=== PATIENT | male | born 1960 | race Caucasian/White ===

== ENCOUNTER 2023-02-27 11:41 | Outpatient (AMB) | payer OTHER, SELFPAY ==
--- NOTE | 2023-02-27 12:02 | MHC.OFFVIS ---
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 Tate. He has a past medical history of hearing loss, tobacco use, hypercholesteremia, depression, gout, anxiety, BPH, atherosclerotic heart disease, and alcohol dependence. He presents to the office today as a new patient for an elevated PSA. In discussion with the patient today he reports [facility] at which time a PSA was ordered and noted to be elevated thus his referral here to Urology. He discusses having had a PSA sometime in the beginning of the year and was noted to be mildly elevated between 4-5 at which time redraw of PSA was ordered for 4 months and PSA 12/28 noted to be 10. Discussed at length potential causes for elevated PSA. Patient reports a longstanding history of lower urinary tract symptoms of weak urinary stream in episodes of nocturia. He discusses being started on Flomax 0.4 mg over 1 year ago and felt this was helping his lower urinary tract symptoms. However, has recently started taking 0.8 mg as he feels urinary stream has weakened. He otherwise denies urinary urgency, urinary frequency, incontinence, hematuria, dysuria, foul smelling urine, flank pain, fever, and or chills. Discussed obtaining redraw of PSA with no sex the night before, no caffeine morning of, and no heavy lifting 1-2 days prior to lab draw as well as retroperitoneal ultrasound for further assessment evaluation. ERENDIRA performed;smooth, no masses or nodules palpated. Patient reports longstanding history of constipation. In office urinalysis results reviewed with the patient today. When asked he denies any known family history of prostate cancer. [facility] Medical History Unspecified hearing loss, unspecified ear Tobacco use Pure hypercholesterolemia, unspecified Major depressive disorder, single episode, unspecified Gout Generalized anxiety disorder Benign prostatic hyperplasia without lower urinary tract symptoms Atherosclerotic heart disease of [place] coronary artery without angina pectoris Alcohol dependence Review of Systems Const Reports as per HPI Eyes Reports no additional complaints ENT Reports as per HPI Card Reports as per HPI Resp Reports no additional complaints GI Reports as per HPI Reports as per HPI Musc Reports no additional complaints Neuro Reports no additional complaints Psych Reports as per HPI Endo Reports no additional complaints Physical Exam Const General: cooperative, comfortable, no acute distress, well developed, alert, awake and poor hygiene Orientation/consciousness: patient oriented x3 Limitations: no limitations HEENT Head: Yes normal to inspection, Yes normocephalic and Yes atraumatic Ears: hearing grossly normal bilaterally Eyes General: appearance normal, both eyes and all related structures Neck Neck: Yes normal visual inspection and Yes trachea midline Chest Chest palpation & inspection: normal inspection of the chest Resp Effort & Inspection: normal respiratory effort and able to speak in complete sentences Cardio Rate: regular rate GI Inspection: Yes normal to inspection General: Yes no CVA tenderness Back/Spine/Pelvis Back: no CVA tenderness Skin General skin exam: no rashes or lesions noted Neuro General: patient oriented x3 Extrem General: Yes normal to inspection Psych Appearance: grossly normal and well kempt Mental Status: mental status grossly normal Speech and movement: Normal speech and movement present and Clear speech present Affect: normal affect Attitude: cooperative Thought process: Normal thought process present Thought content: Normal thought content present Insight: Fair insight present (Psych) Judgement: Fair judgement present (Psych) Results AMB Urinalysis, Automated UA Leukoctes 15 Janna/uL Last Edit by Lakeshia Hoang on 02/27/23 12:19 UA Nitrite Negative Last Edit by Pretty in my Pocket (PRIMP) Viktor on 02/27/23 12:19 UA Urobilinogen 0.2 mg/dL Last Edit by Gliderpresley Hoang on 02/27/23 12:19 UA Protein 100 mg/dL Last Edit by [email or web address] Minutespresley Hoang on 02/27/23 12:19 UA pH 6.0 Last Edit by [email or web address] Minutespresley Hoang on 02/27/23 12:19 UA Blood 0 Juan/uL Last Edit by [email or web address] Minutespresley Hoang on 02/27/23 12:19 UA Specific [place] 1.025 Last Edit by Lakeshia Hoang on 02/27/23 12:19 UA Ketone Positive Last Edit by Lakeshia Gleasonnilton on 02/27/23 12:19 UA Bilirubin 1 mg/dL Last Edit by Lakeshia Gleasonnilton on 02/27/23 12:19 UA Glucose 0 mg/dL Last Edit by Lakeshia Gleasonnilton on 02/27/23 12:19 Results Reviewed Results Reviewed: Laboratory Last Values Urine pH (Auto) 6.0 02/27/23 12:04 Specific [place] (Auto) 1.025 02/27/23 12:04 Urine Protein (Auto) 100 mg/dL 02/27/23 12:04 Glucose (UA)(Auto) 0 mg/dL 02/27/23 12:04 Urine Ketones (Auto) Positive 02/27/23 12:04 Urine Blood (Auto) 0 Juan/uL 02/27/23 12:04 Urine Nitrite (Auto) Negative 02/27/23 12:04 Urine Bilirubin (Auto) 1 mg/dL 02/27/23 12:04 Urine Urobilinogen (Auto) 0.2 mg/dL 02/27/23 12:04 Leukocyte Esterase (Auto) 15 Janna/uL 02/27/23 12:04 Assessment & Plan Assessment & Plan (1) Elevated PSA: Code(s): R97.20 - Elevated prostate specific antigen [PSA] (2) Weak urinary stream: Code(s): R39.12 - Poor urinary stream (3) Lower urinary tract symptoms: Code(s): R39.9 - Unspecified symptoms and signs involving the genitourinary system Plan In office urinalysis results reviewed with the patient today. Continue Flomax as discussed. Will obtain PSA with specific instructions as noted above. Will obtain retroperitoneal ultrasound for further assessment evaluation. Discussed at length potential causes for elevated PSA. Follow-up in 1 month with lab and imaging to be completed prior; or sooner with any issues, concerns, and or questions. Orders: Orders AMB Urinalysis Automated Today Z13.9 - Encounter for screening, unspecified US retroperitoneal comp Today R97.20 - Elevated prostate specific antigen [PSA] PSA,Total (Free>4and<10) Today R97.20 - Elevated prostate specific antigen [PSA] Patient Instructions: The patient had an opportunity to ask questions regarding the treatment plan. All questions were answered. Physical exam, labs, and imaging were discussed and reviewed in detail. As well as risks, benefits, and discussion of treatment choices. No major barriers to understanding were identified. The patient expressed understanding and agreement with the above treatment plan. The patient was made aware they should contact our office by phone for worsening of their current condition, the appearance of new symptoms, or with any questions or concerns. Compliance is encouraged with any medications and follow up testing that is ordered. It is a privilege to be allowed the opportunity to participate in? your urological care.? Again, if you have any questions or concerns If you have any questions or concerns please do not hesitate to contact me. The office is [phone]. This note is constructed using voice recognition software. While every effort has been made to ensure accuracy water rights specialist errors may have been included. Yours sincerely, ORALIA Shelton Coding Level of Care Code New Pt Level 3 (10698) Diagnoses Elevated PSA R97.20 Weak urinary stream R39.12 Lower urinary tract symptoms R39.9
== END 2023-02-27 12:40 | disposition home or self-care (01) ==
PROVIDERS: PCP Internal Medicine; Visit Provider Nurse Practitioner Family
DX: R97.20 Elevated prostate specific antigen [PSA] (principal); R39.12 Poor urinary stream; R39.9 Unspecified symptoms and signs involving the genitourinary system
CPT/HCPCS: 99203

== ENCOUNTER → 2023-02-27 11:41 | Outpatient (BNVA) | payer OTHER, SELFPAY | PROVIDERS: PCP Internal Medicine; Visit Provider Nurse Practitioner Family | DX: R39.9 Unspecified symptoms and signs involving the genitourinary system (principal); R39.15 Urgency of urination; R97.20 Elevated prostate specific antigen [PSA] | CPT/HCPCS: 81003 ==

== ENCOUNTER 2023-03-07 12:49 | Outpatient (REF) | payer BC, SELFPAY ==
[2023-03-07 17:08] LABS: PSA,Total (Free>4and<10) 6.95 ng/mL (0.00-4.00)
[2023-03-09 10:39] LABS: Free Prostate Spec Ag 0.6 ng/mL; Percent Free Prostate Spec Ag 9 % (calc) (>25); Prostate Specific Ag Total 6.6 ng/mL (< OR = 4.0)
== END 2023-03-07 12:50 | disposition home or self-care (01) ==
LOC: HO.HMGCLDS 12:49
PROVIDERS: Visit Provider Nurse Practitioner Family
DX: Z12.5 Encounter for screening for malignant neoplasm of prostate (principal); R97.20 Elevated prostate specific antigen [PSA]
CPT/HCPCS: 36415; 84153; 84154

== ENCOUNTER 2023-03-17 12:50 | Outpatient (REF) | payer BC, OTHER, SELFPAY | END 2023-03-17 12:51 | disposition home or self-care (01) | LOC: HO.HMGCX 12:50 | PROVIDERS: PCP Internal Medicine; Visit Provider Nurse Practitioner Family | DX: Z13.89 Encounter for screening for other disorder (principal) ==

== ENCOUNTER 2023-03-23 10:27 | Outpatient (REF) | payer BC, SELFPAY ==
--- NOTE | ~2023-03-23 | US_ITS ---
EXAMINATION: US RETROPERITONEAL COMPLETE (RENAL) CLINICAL INFORMATION: Elevated prostate specific antigen. COMPARISON: None available. TECHNIQUE: Real-time imaging of the kidneys and bladder. FINDINGS: RIGHT KIDNEY: 10.9 x 5.7 x 5.9 cm (SAG x AP x TRV). The kidney is normal in size, contour, and echogenicity. Renal cortical thickness is normal. No calculi or focal parenchymal lesions. No hydronephrosis. LEFT KIDNEY: 10.9 x 5.1 x 5.8 cm (SAG x AP x TRV). The kidney is normal in size, contour, and echogenicity. Renal cortical thickness is normal. Question midpole cortical scarring. No calculi or focal parenchymal lesions. No hydronephrosis. BLADDER: Well distended and normal. Bilateral ureteral jets are not demonstrated. Prevoid bladder volume is 570 mL. Postvoid bladder volume is 0 mL. Enlarged prostate, volume 51.6 mL. US/US retroperitoneal comp IMPRESSION: Nonhydronephrotic kidneys. Unremarkable appearing distended urinary bladder with no postvoid residual. Enlarged prostate.
== END 2023-03-23 10:28 | disposition home or self-care (01) ==
LOC: HO.HMGCX 10:27
PROVIDERS: PCP Internal Medicine; Visit Provider Nurse Practitioner Family
DX: R97.20 Elevated prostate specific antigen [PSA] (principal)
CPT/HCPCS: 76770

== ENCOUNTER 2023-04-10 14:00 | Outpatient (RCR) | payer OTHER, BC, SELFPAY | END 2023-06-02 11:20 | disposition home or self-care (01) | LOC: HO.PTCHIC 14:00 | PROVIDERS: PCP Emergency Medicine; Visit Provider Orthopaedic Surgery | DX: M75.41 Impingement syndrome of right shoulder (principal); M75.42 Impingement syndrome of left shoulder; M75.21 Bicipital tendinitis, right shoulder; M75.22 Bicipital tendinitis, left shoulder | CPT/HCPCS: 97110; 97162 ==

== ENCOUNTER 2023-04-18 09:55 | Outpatient (AMB) | payer OTHER, SELFPAY ==
--- NOTE | 2023-04-18 10:07 | MHC.OFFVIS ---
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 Tate. He has a past medical history of hearing loss, tobacco use, hypercholesteremia, depression, gout, anxiety, BPH, atherosclerotic heart disease, and alcohol dependence. He presents to the office today for follow-up. Of note, patient was seen approximately 6 weeks ago as a new patient for an elevated PSA at which time redraw of PSA was ordered and a retroperitoneal ultrasound for further assessment evaluation. These results reviewed with the patient today. Bilateral kidneys with no calculi, lesions, and or hydronephrosis noted. The bladder is well distended and normal. Bilateral ureteral jets are not demonstrated. Prevoid bladder volume is approximately 570 mL. Postvoid bladder volume is 0. Enlarged prostate with a volume of approximately 52 mL. PSAs are as follows: 12/28--10.0 02/27--7.0 % free free PSA 9% Discussed PCPT risk calculator with 31% chance that biopsy is negative for cancer, 47% chance of low-grade prostate cancer, and 22% chance of high-grade prostate cancer. Discussed at length potential causes of elevated PSA. Discussed at length potential treatment options with prostate biopsy verses finasteride verses MRI of the prostate for further assessment evaluation. Discussed risks and benefits of these interventions at length with the patient today. ERENDIRA performed at last office visit; smooth, no masses or nodules palpated. He does report longstanding history of lower urinary tract symptoms with nocturia and weak urinary stream. He reports feeling Flomax 0.8 mg daily has been helpful for his lower urinary tract symptoms. He otherwise denies urinary urgency, urinary frequency, incontinence, hematuria, dysuria, foul smelling urine, flank pain, fever, and or chills. Patient reports longstanding history of constipation. In office urinalysis results reviewed with the patient today. When asked he denies any known family history of prostate cancer. [facility] Medical History Unspecified hearing loss, unspecified ear Tobacco use Pure hypercholesterolemia, unspecified Major depressive disorder, single episode, unspecified Gout Generalized anxiety disorder Benign prostatic hyperplasia without lower urinary tract symptoms Atherosclerotic heart disease of [place] coronary artery without angina pectoris Alcohol dependence Review of Systems Const Reports as per HPI Eyes Reports no additional complaints ENT Reports as per HPI Card Reports as per HPI Resp Reports no additional complaints GI Reports as per HPI Reports as per HPI Musc Reports no additional complaints Neuro Reports no additional complaints Psych Reports as per HPI Endo Reports no additional complaints Physical Exam Const General: cooperative, comfortable, no acute distress, well developed, alert, awake and poor hygiene Orientation/consciousness: patient oriented x3 Limitations: no limitations HEENT Head: Yes normal to inspection, Yes normocephalic and Yes atraumatic Ears: hearing grossly normal bilaterally Eyes General: appearance normal, both eyes and all related structures Neck Neck: Yes normal visual inspection and Yes trachea midline Chest Chest palpation & inspection: normal inspection of the chest Resp Effort & Inspection: normal respiratory effort and able to speak in complete sentences Cardio Rate: regular rate GI Inspection: Yes normal to inspection General: Yes no CVA tenderness Back/Spine/Pelvis Back: no CVA tenderness Skin General skin exam: no rashes or lesions noted Neuro General: patient oriented x3 Extrem General: Yes normal to inspection Psych Appearance: grossly normal and well kempt Mental Status: mental status grossly normal Speech and movement: Normal speech and movement present and Clear speech present Affect: normal affect Attitude: cooperative Thought process: Normal thought process present Thought content: Normal thought content present Insight: Fair insight present (Psych) Judgement: Fair judgement present (Psych) Results AMB Urinalysis, Automated UA Leukoctes 0 Janna/uL Last Edit by [email or web address] on 04/18/23 10:21 UA Nitrite Negative Last Edit by [email or web address] on 04/18/23 10:21 UA Urobilinogen 0.2 mg/dL Last Edit by Lakeshia Hoang on 04/18/23 10:21 UA Protein 30 mg/dL Last Edit by Lakeshia Hoang on 04/18/23 10:21 UA pH 6.0 Last Edit by Lakeshia Hoang on 04/18/23 10:21 UA Blood 0 Juan/uL Last Edit by Lakeshia Hoang on 04/18/23 10:21 UA Specific [place] 1.005 Last Edit by Lakeshia Hoang on 04/18/23 10:21 UA Ketone Negative Last Edit by Lakeshia Hoang on 04/18/23 10:21 UA Bilirubin 0 mg/dL Last Edit by Lakeshia Hoang on 04/18/23 10:21 UA Glucose 0 mg/dL Last Edit by Lakeshia Hoang on 04/18/23 10:21 Results Reviewed Results Reviewed: Laboratory Last Values Urine pH (Auto) 6.0 04/18/23 10:15 Specific [place] (Auto) 1.005 04/18/23 10:15 Urine Protein (Auto) 30 mg/dL 04/18/23 10:15 Glucose (UA)(Auto) 0 mg/dL 04/18/23 10:15 Urine Ketones (Auto) Negative 04/18/23 10:15 Urine Blood (Auto) 0 Juan/uL 04/18/23 10:15 Urine Nitrite (Auto) Negative 04/18/23 10:15 Urine Bilirubin (Auto) 0 mg/dL 04/18/23 10:15 Urine Urobilinogen (Auto) 0.2 mg/dL 04/18/23 10:15 Leukocyte Esterase (Auto) 0 Janna/uL 04/18/23 10:15 Date of Service: 03/23/23 EXAMINATION: US RETROPERITONEAL COMPLETE (RENAL) FINDINGS: RIGHT KIDNEY: 10.9 x 5.7 x 5.9 cm (SAG x AP x TRV). The kidney is normal in size, contour, and echogenicity. Renal cortical thickness is normal. No calculi or focal parenchymal lesions. No hydronephrosis. LEFT KIDNEY: 10.9 x 5.1 x 5.8 cm (SAG x AP x TRV). The kidney is normal in size, contour, and echogenicity. Renal cortical thickness is normal. Question midpole cortical scarring. No calculi or focal parenchymal lesions. No hydronephrosis. BLADDER: Well distended and normal. Bilateral ureteral jets are not demonstrated. Prevoid bladder volume is 570 mL. Postvoid bladder volume is 0 mL. Enlarged prostate, volume 51.6 mL. IMPRESSION: Nonhydronephrotic kidneys. Unremarkable appearing distended urinary bladder with no postvoid residual. Enlarged prostate. Assessment & Plan Assessment & Plan (1) Lower urinary tract symptoms: Code(s): R39.9 - Unspecified symptoms and signs involving the genitourinary system (2) Weak urinary stream: Code(s): R39.12 - Poor urinary stream (3) Elevated PSA: Code(s): R97.20 - Elevated prostate specific antigen [PSA] (4) Enlarged prostate: Code(s): N40.0 - Benign prostatic hyperplasia without lower urinary tract symptoms Plan: Plan Risks and benefits regarding trans rectal ultrasound with prostate biopsy were discussed.? Options of continued surveillance, no treatment and biopsy were offered. The risks include but are not limited to, urinary tract infection, sepsis, difficulty urinating, bleeding into the rectum or bladder that requires intervention and transfusion,and failure to diagnose prostate cancer. The patient understands the options and the risks involved. They wish to proceed. Printed information was provided to ensure he remains off anticoagulation for the appropriate length of time. He may require cardiology or PCP clearance.? An antibiotic will be administered prior to, and following the procedure Plan In office urinalysis results reviewed with the patient today; as noted above. Recent retroperitoneal ultrasound results reviewed with the patient today; as noted above. Recent PSA results reviewed with the patient today; as noted above. Discussed at length potential causes of elevated PSA. Discussed further treatment options with prostate biopsy versus trial of finasteride verses prostate MRI; risks and benefits of these interventions were discussed at length; all questions were answered Patient reports be happy with current voiding parameters on 0.8 mg of Flomax daily; will continue Will schedule for prostate biopsy as discussed Prescription provided for antibiotic; discussed taking antibiotics day before, day of, and day after prostate biopsy Follow-up status post Dr. Canas's order; or sooner with any issues, concerns, and or questions. Orders: Orders AMB Urinalysis Automated Today Z13.9 - Encounter for screening, unspecified Medications: New levofloxacin take 1 tablet day before procedure, 1 tablet day of procedure and 1 tablet day after procedure 500 mg PO daily 3 tabs 0RF 3 days Patient Instructions: The patient had an opportunity to ask questions regarding the treatment plan. All questions were answered. Physical exam, labs, and imaging were discussed and reviewed in detail. As well as risks, benefits, and discussion of treatment choices. No major barriers to understanding were identified. The patient expressed understanding and agreement with the above treatment plan. The patient was made aware they should contact our office by phone for worsening of their current condition, the appearance of new symptoms, or with any questions or concerns. Compliance is encouraged with any medications and follow up testing that is ordered. It is a privilege to be allowed the opportunity to participate in? your urological care.? Again, if you have any questions or concerns If you have any questions or concerns please do not hesitate to contact me. The office is [phone]. This note is constructed using voice recognition software. While every effort has been made to ensure accuracy catalyst operator gasoline errors may have been included. Yours sincerely, ORALIA Shelton Coding Level of Care Code Est Pt Level 4 (04266) Diagnoses Lower urinary tract symptoms R39.9 Weak urinary stream R39.12 Elevated PSA R97.20 Enlarged prostate N40.0
== END 2023-04-18 10:51 | disposition home or self-care (01) ==
PROVIDERS: PCP Internal Medicine; Visit Provider Nurse Practitioner Family
DX: R39.9 Unspecified symptoms and signs involving the genitourinary system (principal); R39.12 Poor urinary stream; R97.20 Elevated prostate specific antigen [PSA]; N40.0 Benign prostatic hyperplasia without lower urinary tract symptoms; Z13.9 Encounter for screening, unspecified
CPT/HCPCS: 99214

== ENCOUNTER → 2023-04-18 09:55 | Outpatient (BNVA) | payer OTHER, SELFPAY | PROVIDERS: PCP Internal Medicine; Visit Provider Nurse Practitioner Family | DX: R39.9 Unspecified symptoms and signs involving the genitourinary system (principal); R39.12 Poor urinary stream; R97.20 Elevated prostate specific antigen [PSA]; N40.0 Benign prostatic hyperplasia without lower urinary tract symptoms | CPT/HCPCS: 81003; 99212 ==

== ENCOUNTER 2023-05-16 08:06 | Outpatient (REF) | payer OTHER, SELFPAY ==
[2023-05-16 08:03] VITALS: BP 146/96; PULSE 76; RESP 16; TEMP 36.1; O2SAT 97
[2023-05-16 08:05] VITALS: BMI 29.2
[2023-05-16 09:17] VITALS: BP 149/85; PULSE 75; RESP 16; O2SAT 97
--- NOTE | 2023-05-16 09:19 | W.PM.OPN ---
Operative Note Operative Note Date of Service: 05/16/23 Narrative: Preoperative diagnosis: Elevated PSA Postoperative diagnosis: Elevated PSA Procedure: 1. transrectal ultrasound measurement of prostate 2. transrectal ultrasound-guided pudendal nerve block 3. transrectal ultrasound-guided prostate biopsy 12 core Surgeon: Dr. Eliseo Canas Anesthetic: Local Indications for procedure: Elevated PSA 6.6 9% Procedure: After informed consent was verified, the patient was brought into the procedure area and lay left-hand side down on the table. Patient identity confirmed. Perioperative antibiotics confirmed. Safety pause time out performed. ERENDIRA performed to dilate rectal sphincter Iodine 10cc with Gel was placed per rectum Ultrasound probe was placed per rectum The prostate was measured in 3 dimensions Total volume equals 45 gm No cystic structures were noted Calcifications were noted at the surgical margin The prostate was otherwise heterogenous in nature - clear PZ demarcation An ultrasound-guided pudendal nerve block was performed using 10 cc of 1% lidocaine. 8 cc was placed at the base and 2 cc of the apex. A 12 core biopsy was performed with 6 cores each side. Two cores were taken at the apex, mid and base. Cores were spaced between lateral and medial. He tolerated the procedure well. Was able to ambulate to bathroom after 5 minutes. Printed instructions regarding antibiotic use and common side effects such as low-grade temperature, potential infection and bleeding were given Pathology: 12 core prostate biopsy.
== END 2023-05-16 08:07 | disposition home or self-care (01) ==
LOC: HO.MS 08:06
PROVIDERS: PCP Internal Medicine; Visit Provider Urology
PROC: (CPT 55700; principal; 2023-05-16 08:00)
DX: C61 Malignant neoplasm of prostate (principal); R97.20 Elevated prostate specific antigen [PSA]
CPT/HCPCS: 55700; 76942; 88305

== ENCOUNTER → 2023-05-16 08:06 | Outpatient (BNV) | payer OTHER, SELFPAY | PROVIDERS: PCP Internal Medicine; Visit Provider Urology | DX: R97.20 Elevated prostate specific antigen [PSA] (principal) | CPT/HCPCS: 55700; 76942 ==

== ENCOUNTER 2023-06-07 15:32 | Outpatient (AMB) | payer OTHER, SELFPAY ==
--- NOTE | 2023-06-07 15:47 | A.OFFVIS_ITS ---
Intake Intake Visit Reasons: Prostate biopsy results Intake Note: Patient Is Present for Post Op Follow up Procedure Done: Prostate Biopsy Urology Med: Tamsulosin Antibiotic Allergy: None Blood Thinner: Aspirin Allergies No Known Allergies [No Known Allergies*] Allergy (Unverified 04/18/23 10:23) Medication List - Last Reconciled 06/07/23 by Eliseo Canas MD allopurinol mg PO aspirin 81 mg PO DAILY atorvastatin 80 mg PO DAILY levofloxacin 500 mg PO daily 3 days naproxen 500 mg PO BID tamsulosin 0.4 mg PO DAILY venlafaxine ER 300 mg PO DAILY HPI HPI Comments History of Present Illness Details Shay is a pleasant male. He has a patient of Dr. Tate. He is seen for the following urologic conditions - prostate cancer - nephrolithiasis Discussion regarding recent diagnosis of prostate cancer Recommend staging with MRI and PSMA scan Prostate cancer - grade group 4, low volume, low PSA - 05/31 PSA diagnosis 7.0 free PSA 9% TRUS Volume 45 g ERENDIRA normal No family history of prostate cancer No family history of other hormonal [place] Histologic type: Adenocarcinoma, acinar type Karla score: 9 (5+4) (left base lateral) 45%, 9 (4+5) (left base medial 6%, left mid medial 10%) Number cores positive: 3 Total number of cores: 12 % of tissue involved: 4 % Periprostatic fat inv.: Not identified, Seminal vesicle inv.: Not identified, Perineural inv.: Not identified, Lymphovascular invasion: Not identified Plan for imaging with MRI and PSMA PET CT [facility] Medical History Unspecified hearing loss, unspecified ear Tobacco use Pure hypercholesterolemia, unspecified Major depressive disorder, single episode, unspecified Gout Generalized anxiety disorder Benign prostatic hyperplasia without lower urinary tract symptoms Atherosclerotic heart disease of [place] coronary artery without angina pectoris Alcohol dependence Review of Systems Const Denies chills and Denies fever(s) Card Reports no additional complaints and Denies syncope Resp Denies cough GI Denies abdominal pain and Denies heartburn Reports as per HPI and Denies change in libido Neuro Denies syncope Psych Denies change in libido Endo Denies change in libido Physical Exam Const General: cooperative, healthy appearing, comfortable and no acute distress Orientation/consciousness: patient oriented x3 HEENT Face and sinus: Yes normal facial exam Mouth: moist mucous membranes Neck Neck: Yes normal visual inspection, Yes full ROM and Yes trachea midline Chest Chest palpation & inspection: normal inspection of the chest Resp Effort & Inspection: normal respiratory effort, able to speak in complete sentences and no respiratory distress GI Inspection: Yes normal to inspection Back/Spine/Pelvis Cervical Spine: normal cervical lordosis Thoracic/Lumbar Spine: thoracic and lumbar spine normal to inspection Skin General skin exam: no rashes or lesions noted Neuro General: patient oriented x3, gait normal, tone normal and moves all extremities Extrem General: Yes normal to inspection and Yes capillary refill normal Assessment & Plan Assessment & Plan (1) Prostate cancer: Code(s): C61 - Malignant neoplasm of prostate Plan One month follow-up MRI and PET imaging Orders: Orders Creatinine 4 Weeks C61 - Malignant neoplasm of prostate, R39.15 - Urgency of urination Blood Urea Nitrogen 4 Weeks C61 - Malignant neoplasm of prostate, R39.15 - Urgency of urination PET CT fusion skull to thigh 06/07/23 C61 - Malignant neoplasm of prostate MR pelvis wo/w con 4 Weeks C61 - Malignant neoplasm of prostate Patient Instructions: Imaging studies, laboratory and physical exam results were discussed and reviewed in detail. No major barriers to patient understanding were identified. An opportunity to ask questions regarding the treatment plan was provided. All questions were answered. The patient expressed understanding and agreement with the above treatment plan. The patient is aware they should contact our office by phone for worsening of their current condition or the appearance of new urologic symptoms. Compliance is encouraged with any medications and followup testing that is ordered. It is a privilege to participate in the urologic care of your patient. If you have any questions or concerns regarding treatment for the above conditions, or other urologic issues, please do not hesitate to contact me. The office telephone contact is [phone]. This note is constructed using voice recognition software. While every effort has been made to ensure accuracy cloth checker errors may have been included. Yours sincerely, Dr Eliseo Canas MD, DANIELA [facility] - Urology Providers of Expert, Compassionate Care for the Genitourinary System Coding Level of Care Code Est Pt Level 4 (84105) Diagnoses Prostate cancer C61
== END 2023-06-07 16:20 | disposition home or self-care (01) ==
PROVIDERS: PCP Internal Medicine; Visit Provider Urology
DX: C61 Malignant neoplasm of prostate (principal)
CPT/HCPCS: 99214

== ENCOUNTER → 2023-06-07 15:32 | Outpatient (BNVA) | payer OTHER, SELFPAY | PROVIDERS: PCP Internal Medicine; Visit Provider Urology | DX: C61 Malignant neoplasm of prostate (principal); Z98.890 Other specified postprocedural states | CPT/HCPCS: 99212 ==

== ENCOUNTER 2023-07-26 15:04 | Outpatient (AMB) | payer OTHER, SELFPAY ==
--- NOTE | 2023-07-26 15:47 | A.OFFVIS_ITS ---
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 He has a patient of Dr. Tate. He is seen for the following urologic conditions - prostate cancer - nephrolithiasis PSA may stent has been performed No evidence of genesis disease MRI has not been completed MRI reordered He is more interested in surgery Referral to Dr. Aviles at [facility] for robotic surgery assessment. Discussed basics for robotic prostatectomy including incontinence recovery, erection issues, expected hospital stay. Given grade 4 disease will need germline genetic testing at some point. Prostate cancer - grade group 4, low volume, low PSA - 05/31 PSA diagnosis 7.0 free PSA 9% TRUS Volume 45 g ERENDIRA normal No family history of prostate cancer No family history of other hormonal [place] Histologic type: Adenocarcinoma, acinar type [place] score: 9 (5+4) (left base lateral) 45%, 9 (4+5) (left base medial 6%, left mid medial 10%) Number cores positive: 3 Total number of cores: 12 % of tissue involved: 4 % Periprostatic fat inv.: Not identified, Seminal vesicle inv.: Not identified, Perineural inv.: Not identified, Lymphovascular invasion: Not identified Plan - referral Dr. Aviles [facility] prostatectomy [facility] Medical History (Reviewed 07/26/23 @ 16:00 by GLEN [place] Unspecified hearing loss, unspecified ear Tobacco use Pure hypercholesterolemia, unspecified Major depressive disorder, single episode, unspecified Gout Generalized anxiety disorder Benign prostatic hyperplasia without lower urinary tract symptoms Atherosclerotic heart disease of [place] coronary artery without angina pectoris Alcohol dependence Review of Systems Const Denies chills and Denies fever(s) Card Reports no additional complaints and Denies syncope Resp Denies cough GI Denies abdominal pain and Denies heartburn Reports as per HPI and Denies change in libido Neuro Denies syncope Psych Denies change in libido Endo Denies change in libido Physical Exam Const General: cooperative, healthy appearing, comfortable and no acute distress Orientation/consciousness: patient oriented x3 HEENT Face and sinus: Yes normal facial exam Mouth: moist mucous membranes Neck Neck: Yes normal visual inspection, Yes full ROM and Yes trachea midline Chest Chest palpation & inspection: normal inspection of the chest Resp Effort & Inspection: normal respiratory effort, able to speak in complete sentences and no respiratory distress GI Inspection: Yes normal to inspection Back/Spine/Pelvis Cervical Spine: normal cervical lordosis Thoracic/Lumbar Spine: thoracic and lumbar spine normal to inspection Skin General skin exam: no rashes or lesions noted Neuro General: patient oriented x3, gait normal, tone normal and moves all extremities Extrem General: Yes normal to inspection and Yes capillary refill normal Office Procedures Post Void Residual Post Residual Void Post Void Residual (PVR): 11 [id number] Void Residual by ultrasound Assessment & Plan Assessment & Plan (1) Prostate cancer: Code(s): C61 - Malignant neoplasm of prostate Plan Prostate Cancer Therapy Discussion today focused on treatment options for prostate cancer. The patient has already reviewed educational materials that had been provided to him in printed form. The NCCN criteria for imaging, molecular testing and germ line testing were discussed. Prognostic Model Information calculated using STAR-CAPS [email or web address] Stage Prediction IIC 5yr Specific Mortality 2.5% 10yr Specfic Mortality 9.5% The discussion was then focused on therapeutic options which include 1) Deferred therapy/active surveillance. Recommended in the setting of low volume, very low risk and low risk disease. Criteria include 3 cores all less, same side, no core greater than 50% disease. Evaluation may be augmented with imaging such as pelvic MRI and genetic evaluation of biopsy material. Somatic tissue genetic testing such as Prolaris, which focuses on tumor-specific pathogenic variants that may identify an indication for further germline testing and can guide therapeutic decisions in the setting of low risk and low volume disease. - The patient is not a candidate for active surveillance. 2) Targeted Cryotherapy Ablation. The technique of cryotherapy was described. PSA free progression rates were discussed. Suitable candidates in general have low volume grade group 1 or grade group 2 disease. Typically pelvic MRI with targeted mapping biopsies are required for treatment planning. - The patient is not a candidate for image guided targeted cryotherapy ablation. 3) Robotic Prostatectomy. Salient features of the patient's PSA, Karla score and disease stage were applied to the [facility] nomogram. Relevant rates of extracapsular extension, seminal vesicle involvement genesis involvement with discussed. Pathologic up staging and down staging on final specimen was discussed. Salient features of the procedure, hospitalization and recovery were discussed. - The patient is a candidate for robotic prostatectomy. 4) Radiation therapy was described. IMRT, hyperfractionated therapy, permanent seed implant with all without concomitant androgen deprivation therapy and rectal protection were discussed. There is a small separation regarding cancer control between radiation and prostatectomy at approximately 15 years. There is an evolving preference for hyper fractionated therapy. This gives the same radiation total dose in a reduced number of individual treatment sessions. This approach is associated with higher risks of rectal bleeding. To ameliorate these risks injection of a spacer gel posterior to the prostate has been advocated. This is only indicated in patients without evidence of extracapsular extension posteriorly, and should be considered with caution where disease is primary grade 4. Brachytherapy was described in detail. Typically this is a same day procedure. Therapy is typically well tolerated and gives good control for low-risk prostate cancer and cancer that does not involve neurovascular invasion. - The patient is a candidate for EXBRT with 18 months hormone therapy Different risks were described for each therapeutic option. Ranges from the published literature were discussed. Consequent morbidity and treatment to address complications were discussed. These include - robotic prostatectomy - Typically patients are in hospital for one day and miss 4 weeks of work. The importance of preoperative walking and Kegel exercises was stressed. Complications, including but not limited to; acute complications regarding blood loss, transfusion, DVT, ileus, wound infection and potential mortality. Long-term complications such as impotence, UTI, urethral stricture, bladder neck contracture, incontinence. Penile shrinkage and chronic pain were discussed and reviewed. - radiation - IMRT typically this takes 25-40 daily treatments administered on a Monday through Monday sequence. Treatment is normally well tolerated. associated side effects include urge, frequency, dysuria, hematuria, loose bowels and fatigue, particularly toward the end of therapy. These can be ameliorated to some degree with medication. Long-term risks regarding impotence and a small risk of chronic urinary urge and incontinence were discussed - brachytherapy General anesthesia is used. Radioactive seeds are placed. There may be a required planning visit. Risks regarding anesthesia with DVT, PE, infection, urinary retention, urgency, and frequency were discussed. Long-term risks include bladder neck contraction, impotence, urge, potential for secondary cancer of the bladder base The patient has Grade Group 4 - pT1c prostate cancer disease Based on the patient's age, comorbidities and personal preferences reasonable treatment options include robotic prostatectomy and external beam radiation The patient is a candidate for germline testing in accordance with the NCCN guideline Germline testing Germline testing is used to identify inherited pathogenic variants in DNA, which can guide screening, familial testing, and treatment decision-making. The National Comprehensive Cancer Network (NCCN) has recommended the use of germline genetic testing for patients with prostate cancer since 2018.?Germline testing should be considered for patients with clinically low-to intermediate-localized disease with a family history of prostate cancer; or high-to very high-risk localized disease. For regional or distant metastatic disease, germline testing is recommended regardless of initial risk. Please see the following excerpt. NCCN Version 4.2023 PROS-C 2 of 3 Germline testing is recommended in patients with a personal history of prostate cancer in the following scenarios: ? By prostate cancer stage or risk group (diagnosed at any age) - Metastatic, regional (node positive), [id number] localized, or high- risk localized prostate cancer ? By family history and/or ancestry - >= 1 - first-, second-, or third-degree relative with: - breast cancer at age <50 - colorectal or endometrial cancer at age <50 - male (sex assigned at ) breast cancer at any age - ovarian cancer at any age - exocrine pancreatic cancer at any age - metastatic, regional, [id number], or high-risk prostate cancer at any age - >= 1- first-degree relative (parent or sibling) with: - prostate cancer at age <60 - >= 2- first-, second-, or third-degree relatives with: - breast cancer at any age - prostate cancer at any age - >= 3 - first- or second-degree relatives with: - Darby syndrome-related cancers, especially if diagnosed <50 y: colorectal, endometrial, gastric, ovarian, exocrine pancreas, upper tract urothelial, glioblastoma, biliary tract, and small intestinal cancer - A known family history of familial cancer risk mutation (pathogenic/likely pathogenic variants), especially in: BRCA1, BRCA2, SALVADRO, PALB2, CHEK2, MLH1, MSH2, MSH6, PMS2, and EPCAM - Ashkenazi Quaker ancestry ? Personal history of breast cancer Germline testing may be considered in patients with a personal history of prostate cancer in the following scenarios: ? By prostate cancer tumor characteristics (diagnosed at any age) - intermediate-risk prostate cancer with intraductal/cribriform histologyc ? By prostate cancer AND a prior personal history of any of the following cancers: exocrine pancreatic, colorectal, gastric, melanoma, upper tract urothelial, glioblastoma, biliary tract, and small intestinal References: Sona RT, Jay K, Danielle MJ, et al. Development and Validation of a Clinical Prognostic Stage Group System.?[employer]. doi: [email or web address] Orders: Orders AMB Post Void Residual by ultrasound Today R33.9 - Retention of urine, unspecified Prostate Specific Antigen 06/16/23 C61 - Malignant neoplasm of prostate MR pelvis wo/w con Today C61 - Malignant neoplasm of prostate Referrals Urology Referral C61 - Malignant neoplasm of prostate Patient Instructions: Imaging studies, laboratory and physical exam results were discussed and reviewed in detail. No major barriers to patient understanding were identified. An opportunity to ask questions regarding the treatment plan was provided. All questions were answered. The patient expressed understanding and agreement with the above treatment plan. The patient is aware they should contact our office by phone for worsening of their current condition or the appearance of new urologic symptoms. Compliance is encouraged with any medications and followup testing that is ordered. It is a privilege to participate in the urologic care of your patient. If you have any questions or concerns regarding treatment for the above conditions, or other urologic issues, please do not hesitate to contact me. The office telephone contact is [phone]. This note is constructed using voice recognition software. While every effort has been made to ensure accuracy burr mill operator errors may have been included. Yours sincerely, Dr Eliseo Canas MD, DANIELA [facility] - Urology Providers of Expert, Compassionate Care for the Genitourinary System Coding Level of Care Code Est Pt Level 4 (11614) Diagnoses Prostate cancer C61 CPT Codes Post Residual Void - PVR CPT Code: 76689-[id number] Void Residual by ultrasound ([id number])
== END 2023-07-26 16:33 | disposition home or self-care (01) ==
PROVIDERS: PCP Internal Medicine; Referring Provider Urology; Visit Provider Urology
DX: C61 Malignant neoplasm of prostate (principal)
CPT/HCPCS: 99214

== ENCOUNTER → 2023-07-26 15:04 | Outpatient (BNVA) | payer OTHER, SELFPAY | PROVIDERS: PCP Internal Medicine; Visit Provider Urology | DX: C61 Malignant neoplasm of prostate (principal) | CPT/HCPCS: 51798; 99212 ==

== ENCOUNTER 2023-09-01 14:09 | Outpatient (REF) | payer OTHER, SELFPAY ==
[2023-09-01 16:47] LABS: Blood Urea Nitrogen 6 mg/dL (9-16); Estimated Glomerular Filt Rate > 60
[2023-09-01 17:08] LABS: Prostate Specific Antigen 5.99 ng/mL (<0.05-4.0)
== END 2023-09-01 14:10 | disposition home or self-care (01) ==
LOC: HO.HMGCLDS 14:09
PROVIDERS: PCP Internal Medicine; Visit Provider Urology
DX: C61 Malignant neoplasm of prostate (principal); R39.15 Urgency of urination; Z12.5 Encounter for screening for malignant neoplasm of prostate
CPT/HCPCS: 36415; 82565; 84153; 84520

== ENCOUNTER 2023-09-06 15:32 | Outpatient (AMB) | payer OTHER, SELFPAY ==
--- NOTE | 2023-09-06 15:33 | MHC.OFFVIS ---
Intake Visit Reasons: 6w/PET CT/PSA(set)Confirmed Intake Note: Patient is present for Telephone Follow up PET CT/PSA Allergies No Known Allergies [No Known Allergies*] Allergy (Verified 07/26/23 16:00) Medication List - Last Reconciled 09/06/23 by Eliseo Canas MD allopurinol mg PO aspirin 81 mg PO DAILY atorvastatin 80 mg PO DAILY levofloxacin 500 mg PO daily 3 days naproxen 500 mg PO BID tamsulosin 0.4 mg PO DAILY venlafaxine ER 300 mg PO DAILY HPI Comments Details: Shay is a pleasant male. He has a patient of Dr. Tate. He is seen for the following urologic conditions - prostate cancer - nephrolithiasis Telemedicine Evaluation 15 min Consultation [employer] Maryann [employer] attemptive No evidence of genesis disease MRI has not been completed MRI reordered He is more interested in surgery Referral to Dr. Aviles at [facility] for robotic surgery assessment. Discussed basics for robotic prostatectomy including incontinence recovery, erection issues, expected hospital stay. Given grade 4 disease will need germline genetic testing at some point. Prostate cancer - grade group 4, low volume, low PSA - 05/31 PSA diagnosis 7.0 free PSA 9% TRUS Volume 45 g ERENDIRA normal No family history of prostate cancer No family history of other hormonal [place] Histologic type: Adenocarcinoma, acinar type Karla score: 9 (5+4) (left base lateral) 45%, 9 (4+5) (left base medial 6%, left mid medial 10%) Number cores positive: 3 Total number of cores: 12 % of tissue involved: 4 % Periprostatic fat inv.: Not identified, Seminal vesicle inv.: Not identified, Perineural inv.: Not identified, Lymphovascular invasion: Not identified Plan - referral Dr. Aviles [facility] prostatectomy [facility] Medical History Unspecified hearing loss, unspecified ear Tobacco use Pure hypercholesterolemia, unspecified Major depressive disorder, single episode, unspecified Gout Generalized anxiety disorder Benign prostatic hyperplasia without lower urinary tract symptoms Atherosclerotic heart disease of [place] coronary artery without angina pectoris Alcohol dependence Review of Systems Const All systems reviewed & are unremarkable except as noted in HPI and below Reports no additional complaints Resp Reports no additional complaints GI Reports no additional complaints Reports as per HPI Musc Reports no additional complaints Physical Exam Telemedicine evaluation Appropriate responses Regular breathing rate and rhythm HEENT Head: Yes normal to inspection Ears: hearing grossly normal bilaterally Eyes General: appearance normal, both eyes and all related structures Neck Neck: Yes normal visual inspection Chest Chest palpation & inspection: normal inspection of the chest Resp Effort & Inspection: normal respiratory effort and able to speak in complete sentences Telehealth Telehealth Location of provider rendering services: practice address Location of patient: address on file Patient Identification confirmed using: Name, : Yes Telehealth method: voice only Patient verbally consented to treatment: Yes Patient verbally consented to billing insurance company: Yes Patient informed of any privacy concerns related to visit: Yes Assessment & Plan Assessment & Plan (1) Prostate cancer: Code(s): C61 - Malignant neoplasm of prostate Category: Medical Plan Referral for prostatectomy evaluation Orders: Referrals Urology Referral C61 - Malignant neoplasm of prostate Patient Instructions: Imaging studies, laboratory and physical exam results were discussed and reviewed in detail. No major barriers to patient understanding were identified. An opportunity to ask questions regarding the treatment plan was provided. All questions were answered. The patient expressed understanding and agreement with the above treatment plan. The patient is aware they should contact our office by phone for worsening of their current condition or the appearance of new urologic symptoms. Compliance is encouraged with any medications and followup testing that is ordered. It is a privilege to participate in the urologic care of your patient. If you have any questions or concerns regarding treatment for the above conditions, or other urologic issues, please do not hesitate to contact me. The office telephone contact is [phone]. This note is constructed using voice recognition software. While every effort has been made to ensure accuracy switchboard operator supervisor errors may have been included. Yours sincerely, Dr Eliseo Canas MD, DANIELA [facility] - Urology Providers of Expert, Compassionate Care for the Genitourinary System Coding Level of Care Code Tele Est Pt Level 3 (75925) Diagnoses Prostate cancer C61
== END 2023-09-06 16:20 | disposition home or self-care (01) ==
LOC: HO.HUSH 15:32
PROVIDERS: PCP Internal Medicine; Visit Provider Urology
DX: C61 Malignant neoplasm of prostate (principal)
CPT/HCPCS: 99442

== ENCOUNTER → 2023-09-06 15:32 | Outpatient (BNVA) | payer OTHER, SELFPAY | PROVIDERS: PCP Internal Medicine; Visit Provider Urology ==

== ENCOUNTER 2023-11-03 15:40 | Outpatient (AMB) | payer OTHER, SELFPAY ==
--- NOTE | 2023-11-03 15:46 | MHC.OFFVIS ---
Intake Visit Reasons: MRI follow up Intake Note: Patient is present for Tele MRI follow up Urology Med: Tamsulosin Allergies No Known Allergies [No Known Allergies*] Allergy (Verified 07/26/23 16:00) HPI Comments Details: Shay is a pleasant male. He has a patient of Dr. Tate. He is seen for the following urologic conditions - prostate cancer - nephrolithiasis Telemedicine Evaluation 15 min Consultation [facility] [place] Maryann Video attempted Prostate MRI -calculated volume 38 cc. Right posterolateral portion of peripheral zone 1 cm PI-RADS 4. No evidence of extracapsular disease. He is more interested in surgery Needs re-referral to Dr. Aviles at [facility] for robotic surgery assessment Discussed basics for robotic prostatectomy including incontinence recovery, erection issues, expected hospital stay. Given grade 4 disease will need germline genetic testing at some point. PET-CT - binding to prostate gland no evidence of extraprostatic Prostate cancer - Grade Group 4, Low Volume, low PSA - 05/31 PSA diagnosis 7.0 free PSA 9% TRUS Volume 45 g ERENDIRA normal No family history of prostate cancer No family history of other hormonal cancer Histologic type: Adenocarcinoma, acinar type Weston score: 9 (5+4) (left base lateral) 45%, 9 (4+5) (left base medial 6%, left mid medial 10%) Number cores positive: 3 Total number of cores: 12 % of tissue involved: 4 % Periprostatic fat inv.: Not identified, Seminal vesicle inv.: Not identified, Perineural inv.: Not identified, Lymphovascular invasion: Not identified Plan - referral Dr. Aviles [facility] prostatectomy [facility] Medical History Unspecified hearing loss, unspecified ear Tobacco use Pure hypercholesterolemia, unspecified Major depressive disorder, single episode, unspecified Gout Generalized anxiety disorder Benign prostatic hyperplasia without lower urinary tract symptoms Atherosclerotic heart disease of [place] coronary artery without angina pectoris Alcohol dependence Review of Systems Const All systems reviewed & are unremarkable except as noted in HPI and below Reports no additional complaints Resp Reports no additional complaints GI Reports no additional complaints Reports as per HPI Musc Reports no additional complaints Physical Exam Telemedicine evaluation Appropriate responses Regular breathing rate and rhythm HEENT Head: Yes normal to inspection Ears: hearing grossly normal bilaterally Eyes General: appearance normal, both eyes and all related structures Neck Neck: Yes normal visual inspection Chest Chest palpation & inspection: normal inspection of the chest Resp Effort & Inspection: normal respiratory effort and able to speak in complete sentences Telehealth Telehealth Location of provider rendering services: practice address Location of patient: address on file Patient Identification confirmed using: Name, : Yes Telehealth method: voice only Patient verbally consented to treatment: Yes Patient verbally consented to billing insurance company: Yes Patient informed of any privacy concerns related to visit: Yes Assessment & Plan Assessment & Plan (1) Prostate cancer: Code(s): C61 - Malignant neoplasm of prostate Category: Medical Plan Referral for prostatectomy Risks, benefits and alternatives to therapy were discussed. These include but are not limited to infection, bleeding, damage to local organs and tissues, need for further interventions. Anesthetic risks regarding cardiac arrhythmia, blood clots, and potential mortality were discussed. The patient understands the typical recovery time and the outpatient nature of the procedure. After consideration of these risks the patient gives full informed consent and they wish to move ahead with the procedure. Patient Instructions: Imaging studies, laboratory and physical exam results were discussed and reviewed in detail. No major barriers to patient understanding were identified. An opportunity to ask questions regarding the treatment plan was provided. All questions were answered. The patient expressed understanding and agreement with the above treatment plan. The patient is aware they should contact our office by phone for worsening of their current condition or the appearance of new urologic symptoms. Compliance is encouraged with any medications and followup testing that is ordered. It is a privilege to participate in the urologic care of your patient. If you have any questions or concerns regarding treatment for the above conditions, or other urologic issues, please do not hesitate to contact me. The office telephone contact is [phone]. This note is constructed using voice recognition software. While every effort has been made to ensure accuracy experimental plastics fabricator errors may have been included. Yours sincerely, Dr Eliseo Canas MD, [facility] - Urology Providers of Expert, Compassionate Care for the Genitourinary System Coding Level of Care Code Tele Est Pt Level 3 (94566) Diagnoses Prostate cancer C61
== END 2023-11-03 16:21 | disposition home or self-care (01) ==
LOC: HO.HUSH 15:40
PROVIDERS: PCP Internal Medicine; Visit Provider Urology
DX: C61 Malignant neoplasm of prostate (principal)
CPT/HCPCS: 99213

== ENCOUNTER → 2023-11-03 15:40 | Outpatient (BNVA) | payer OTHER, SELFPAY | PROVIDERS: PCP Internal Medicine; Visit Provider Urology ==

== ENCOUNTER 2024-02-22 09:16 | Emergency (ER) | payer OTHER, SELFPAY ==
--- NOTE | ~2024-02-22 | US_ITS ---
EXAMINATION: US TRIPLEX LOWER EXTREMITY, BILATERAL CLINICAL INFORMATION: Bilateral lower extremity pain and swelling COMPARISON: None available. TECHNIQUE: Color-flow triplex imaging with spectral analysis and compression Doppler were performed on the bilateral lower extremities. FINDINGS: Respiratory variation, normal compression and augmented flow are noted throughout the bilateral lower extremities. The visualized common femoral vein, superficial femoral vein, profunda femoral vein, popliteal vein and midcalf peroneal and posterior tibial venous segments show no evidence of deep venous thrombosis bilaterally. There is no Lea's cyst. US/US venous duplex LE BI IMPRESSION: No evidence of deep venous thrombosis involving the bilateral lower extremities. Electronically signed by: Sebas Bethea MD 02/22/2024 12:39 PM EDT
[2024-02-22 09:24] VITALS: BP 124/76; PULSE 58; RESP 16; TEMP 36.6; O2SAT 94; BMI 28.5
--- NOTE | 2024-02-22 09:59 | ED_ITS ---
HPI - Extremity Problem General Chief complaint: Extremity Problem Stated complaint: hands and feet swelling Time Seen by Provider: 02/22/24 09:58 Source: patient and old records reviewed Mode of arrival: ambulatory Limitations: no limitations History of Present Illness ED Provider: MICHAEL CHIU Narrative: 63 yo male with PMH of depression, HLD, anxiety, ETOH use, BPH and prostate cancer treated by Dr. Aviles at [facility] for robotic surgery who presents with c/o 3 months of leg swelling and pain in hands and feet where he cannot walk well or use his hands and feet. No trauma, takes gabapentin not sure of his dose. States he has been on B1. He notes he has not drank since December. No n/v/d I do not see diuretics on his list MD Complaint: extremity pain and other (tingling, swelling) Onset (ago): month(s) (3) Pain Consistency: constant Location: left, right, upper extremity and lower extremity Quality: burning and aching Radiation: none Relieving factors: nothing Exacerbating factors: walking and palpation Associated symptoms: denies other symptoms Related Data Home Medications ?Medication ?Instructions ?Recorded ?Confirmed allopurinol 300 mg tablet mg PO 02/27/23 09/06/23 aspirin 81 mg tablet,delayed 81 mg PO DAILY 02/27/23 09/06/23 release tamsulosin 0.4 mg capsule 0.4 mg PO DAILY 02/27/23 09/06/23 venlafaxine 150 mg 300 mg PO DAILY 02/27/23 09/06/23 capsule,extended release 24 hr atorvastatin 80 mg tablet 80 mg PO DAILY 04/18/23 09/06/23 naproxen 500 mg tablet 500 mg PO BID 04/18/23 09/06/23 Previous Rx's ?Medication ?Instructions ?Recorded levofloxacin 500 mg tablet 500 mg PO daily 3 days #3 tabs 04/18/23 furosemide 20 mg tablet (Lasix) 20 mg PO DAILY #4 tabs 02/22/24 gabapentin 300 mg capsule 300 mg PO TID #90 caps 02/22/24 thiamine HCl (vitamin B1) 100 mg 100 mg PO DAILY #30 tabs 02/22/24 tablet Allergies Allergy/AdvReac Type Severity Reaction Status Date / Time No Known Allergies Allergy Verified 02/22/24 09:25 [No Known Allergies*] Review of Systems 2 Review of Systems: Constitutional : No Fever, No Chills ENT/Mouth : No Ear Pain, No Hoarseness, No sore throat Eyes: No Eye Pain, No Swelling, No Redness, No Foreign Body Cardiovascular : No Chest Pain, No SOB,pos edema Respiratory : No Cough, No Dyspnea Gastrointestinal : No Nausea, No Vomiting, No Diarrhea, No abdominal Pain Genitourinary : No Dysuria, No Hematuria Musculoskeletal : positive joint pain, No Myalgias, No Joint Swelling Skin : No Skin lacerations, No rash Neuro : No Weakness, No Numbness, No Loss of Consciousness, No Dizziness, No Headache, pos paresthesias Psych : No Anxiety/Panic, No Depression Heme/Lymph: no easy bruising, no Lymphadenopathy Endocrine : No Polyuria, No Polydipsia All other systems reviewed and are negative [facility] Past Medical History Attestation statement: The following information was validated with the patient. Source: old records reviewed Medical History Unspecified hearing loss, unspecified ear Tobacco use Pure hypercholesterolemia, unspecified Major depressive disorder, single episode, unspecified Gout Generalized anxiety disorder Benign prostatic hyperplasia without lower urinary tract symptoms Atherosclerotic heart disease of [place] coronary artery without angina pectoris Alcohol dependence Social History Social History (Updated 02/22/24 @ 10:02 by Becky Cox DO) Patient Tobacco Use Status: Current everyday Tobacco user Smoked in Last 30 Days: Yes Use of substances other than those prescribed or required for medical reasons: No Advance Directives: No Advance Directives Information Provided: No Do you have a plan to hurt others: No Plan Physical Exam 2 Vital Signs: Vital Signs: Last Vital Signs Temp 97.8 F 02/22/24 10:58 Pulse 61 02/22/24 10:58 Resp 14 02/22/24 10:58 BP 112/64 02/22/24 10:58 Pulse Ox 95 02/22/24 10:58 O2 Del Method Room Air 02/22/24 10:58 BMI result Body Mass Index 28.5 Appearance: Alert. Oriented X3. No acute distress. Eyes: Pupils equal, round and reactive to light. ENT: Pharynx normal. Neck: Normal inspection. Neck supple. CVS: Normal heart rate and rhythm. Pulses normal. Respiratory: No respiratory distress. Breath sounds normal. Abdomen: Soft and nontender. Skin: Skin warm and dry. Normal skin color. Normal skin turgor. Extremities: 1+ symmetric lower extremity edema. hands no swelling noted Neuro: Oriented X 3. No motor deficit. No sensory deficit. erports tingling burning pain in hands and feet Medical Decision Making Medical Decision Making [facility] Narrative: 63 yo male with PMH of depression, HLD, anxiety, ETOH use, BPH and prostate cancer treated by Dr. Aviles at [facility] for robotic surgery who presents with c/o burning pain and swelling in legs and hands on exam no signs of infection he has had this for 3 months at this time could be related to lytes, vitamin deficiency, DVT, liver ds, neuropathy. I have ordered EKG, DVT studies, labs. He is on gabapentin 100mg TID would increase to 300mg TID at this time for pain control and refer back to PCP if work up negative Differential Diagnosis Differential Diagnoses: The differential diagnosis associated with the presentation includes neuropathy, lyte abnormality, DVT, liver ds, CHF Admission/Observation Consideration of admission/observation: Escalation of care including admission/observation considered no acute findings on labs, DVT study negative chronic pain will start on low dose lasix for 3 days and increase gabapentin to 300mg TID Lab Data [facility] Lab Attestation statement: I reviewed the patient's lab results. 02/22/24 10:41 02/22/24 10:41 Labs: Lab Results 02/22/24 Range/Units 10:41 WBC 5.3 (4.8-10.8) X10*3/uL RBC 3.93 L (4.60-5.80) X10*6/uL Hgb 11.7 L (14.0-18.0) g/dl Hct 36.4 L (42.0-52.0) % MCV 92.6 (80.0-98.0) fL MCH 29.8 (27.0-33.0) pg MCHC 32.1 (31.0-36.0) g/dl RDW 14.9 (11.0-16.0) % Plt Count 198 (160-400) X10*3/uL MPV 10.8 (9.4-12.4) fL Immature Gran % (Auto) 0.4 (0.0-0.4) % Neut % (Auto) 59.1 (45-73) % Lymph % (Auto) 24.5 (20-40) % Greer % (Auto) 11.4 H (2-11) % Eos % (Auto) 3.8 (0-4) % Baso % (Auto) 0.8 (0-2) % Lymph # (Auto) 1.3 (1.2-4.9) X10*3/uL Greer # (Auto) 0.6 (0.1-1.2) X10*3/uL Eos # (Auto) 0.2 (0.0-0.4) X10*3/uL Baso # (Auto) 0.0 (0.0-0.2) X10*3/uL Abs Immat Gran (auto) 0.02 (0.00-0.03) X10*3/uL Absolute Neuts (auto) 3.1 (2.0-8.3) x10*3/uL Absolute Nucleated RBC 0.000 (0.0-0.012) X10*3/uL Nucleated RBC % (auto) 0.0 (0.0-0.2) /100WBC ESR 18 H (0-15) MM/HR Sodium 141 (135-145) mmol/L Potassium 4.0 (3.3-5.1) mmol/L Chloride 103 (96-108) mmol/L Carbon Dioxide 32 H (22-29) mmol/L Anion Gap 10 L (12-20) BUN 6 L (9-16) mg/dL Creatinine 0.70 (0.5-1.4) mg/dL Estim Creat Clear Calc 119.7 Estimated GFR > 60 Random Glucose 92 (60-115) mg/dL Calcium 9.0 (8.4-10.2) mg/dL Total Bilirubin 0.3 (0.0-1.0) mg/dL AST 20 (5-37) U/L ALT 14 (0-40) U/L Alkaline Phosphatase 73 (39-117) U/L B-Natriuretic Peptide 165 H (<100) pg/mL Total Protein 6.0 L (6.5-8.0) g/dL Albumin 3.2 L (3.5-5.0) g/dL Vitamin B12 259 (200-900) pg/mL Folate 6.5 (> or = 4.0) ng/mL TSH 0.70 (0.32-4.0) uIU/mL Ethyl Alcohol < 10 mg/dL Independent Interpretation I performed an independent interpretation of an: EKG and Ultrasound (no blood clot) Interpretation: Rate: 59 Rhythm: sinus bradycardia [place]: normal Normal P waves. Normal DARRIUS. Normal QRS complex. ST T wave : normal no TATE qTC: 465 prior studies: no acute ischemia The study has been interpreted contemporaneously by me. . Radiology Impression Discussion of test interpretation with radiology: I have reviewed the radiologist's reading. External Record Review External record reviewed: Office record Discharge Plan Discharge Clinical Impression: Leg edema, Neuropathy Patient Disposition: Home, Self-Care Instructions: Peripheral Neuropathy (ED), Leg Edema (ED) Additional Instructions: you need to follow up with your doctor today labs done and test for blood clot in legs are negative please wear compressive stockings or socks to help with swelling will increase gabapentin to 300mg TID for pain return for any worsening symptoms or concerns Prescriptions: New furosemide [Lasix] 20 mg tablet 20 mg PO DAILY Qty: 4 0RF gabapentin 300 mg capsule 300 mg PO TID Qty: 90 0RF thiamine HCl (vitamin B1) 100 mg tablet 100 mg PO DAILY Qty: 30 0RF No Action venlafaxine 150 mg capsule,extended release 24hr 300 mg PO DAILY tamsulosin 0.4 mg capsule 0.4 mg PO DAILY allopurinol 300 mg tablet PO aspirin 81 mg tablet,delayed release (DR/EC) 81 mg PO DAILY naproxen 500 mg tablet 500 mg PO BID atorvastatin 80 mg tablet 80 mg PO DAILY levofloxacin 500 mg tablet 500 mg PO daily 3 Days Qty: 3 0RF Rx Instructions: take 1 tablet day before procedure, 1 tablet day of procedure and 1 tablet day after procedure Print Language: Telugu
--- NOTE | 2024-02-22 10:13 | ECG_ITS ---
Test Reason : leg swelling Blood Pressure : / mmHG Vent. Rate : 059 BPM Atrial Rate : 059 BPM P-R Int : 144 ms QRS Dur : 086 ms QT Int : 470 ms P-R-T Axes : 029 051 057 degrees QTc Int : 465 ms Sinus bradycardia Otherwise normal ECG When compared with ECG of 21-AUG-2016 11:16, No significant change was found Referred By: Becky Cox Electronically Signed By:LUIS GUADARRAMA
[2024-02-22 10:47] LABS: MANUAL DIFF FLAG NO
[2024-02-22 10:49] LABS: Basophils Percent Auto 0.8 % (0-2); Eosinophils Absolute Auto 0.2 X10*3/uL (0.0-0.4); Eosinophils Percent Auto 3.8 % (0-4); Hematocrit 36.4 % (42.0-52.0); Hemoglobin 11.7 g/dl (14.0-18.0); Imm Gran Abs Auto 0.02 X10*3/uL (0.00-0.03); Imm Gran Pct Auto 0.4 % (0.0-0.4); Lymphocytes Absolute Auto 1.3 X10*3/uL (1.2-4.9); Lymphocytes Percent Auto 24.5 % (20-40); Mean Corpuscular HGB Conc 32.1 g/dl (31.0-36.0); Mean Corpuscular Hemoglobin 29.8 pg (27.0-33.0); Mean Corpuscular Volume 92.6 fL (80.0-98.0); Mean Platelet Volume 10.8 fL (9.4-12.4); Monocytes Absolute Auto 0.6 X10*3/uL (0.1-1.2); Monocytes Percent Auto 11.4 % (2-11); Neutrophils Absolute Auto 3.1 x10*3/uL (2.0-8.3); Neutrophils Percent Auto 59.1 % (45-73); Platelet Count 198 X10*3/uL (160-400); Red Blood Count 3.93 X10*6/uL (4.60-5.80); Red Cell Distribution Width 14.9 % (11.0-16.0); White Blood Count 5.3 X10*3/uL (4.8-10.8)
[2024-02-22 10:58] VITALS: BP 112/64; PULSE 61; RESP 14; TEMP 36.6; O2SAT 95
[2024-02-22 11:08] LABS: Alanine Aminotransferase 14 U/L (0-40); Albumin Level 3.2 g/dL (3.5-5.0); Alkaline Phosphatase 73 U/L (39-117); Anion Gap 10 (12-20); Aspartate Amino Transferase 20 U/L (5-37); Bilirubin Total 0.3 mg/dL (0.0-1.0); Blood Urea Nitrogen 6 mg/dL (9-16); Carbon Dioxide 32 mmol/L (22-29); Chloride 103 mmol/L (96-108); Creatinine Clr Calc Pharmacy 119.7; Estimated Glomerular Filt Rate > 60; Glucose Random 92 mg/dL (60-115); Sodium 141 mmol/L (135-145)
[2024-02-22 11:09] LABS: Ethanol < 10 mg/dL
[2024-02-22 11:12] LABS: B Type Natriuretic Peptide 165 pg/mL (<100)
[2024-02-22 11:27] LABS: Erythrocyte Sedimentation Rate 18 MM/HR (0-15)
[2024-02-22 11:44] LABS: Folate 6.5 ng/mL (> or = 4.0); Vitamin B12 259 pg/mL (200-900)
[2024-02-22 13:21] VITALS: BP 120/80; PULSE 59; RESP 16; TEMP 36.5; O2SAT 97
== END 2024-02-22 13:23 | disposition home or self-care (01) ==
PROVIDERS: Emergency Provider Emergency Medicine
DX: R60.0 Localized edema (principal); R00.1 Bradycardia, unspecified; R06.02 Shortness of breath; G62.9 Polyneuropathy, unspecified; R94.31 Abnormal electrocardiogram [ECG] [EKG]; Z51.81 Encounter for therapeutic drug level monitoring; Z79.899 Other long term (current) drug therapy
CPT/HCPCS: 36415; 80053; 80307; 82607; 82746; 83880; 84443; 85025; 85652; 93005; 93970; 99284

== ENCOUNTER → 2024-02-22 10:13 | Outpatient (BNV) | payer BC, SELFPAY | PROVIDERS: Emergency Provider Emergency Medicine; Visit Provider Internal Medicine | DX: R00.1 Bradycardia, unspecified (principal) | CPT/HCPCS: 93010 ==

== ENCOUNTER 2024-03-12 23:59 | Outpatient (BNV) | payer BC, SELFPAY | END 2024-03-14 23:59 | PROVIDERS: Visit Provider Internal Medicine | DX: I25.10 Atherosclerotic heart disease of native coronary artery without angina pectoris (principal); R55 Syncope and collapse | CPT/HCPCS: 99223 ==

== ENCOUNTER 2024-10-29 10:20 | Emergency (ER) | payer OTHER, BC, SELFPAY ==
--- OUTSIDE RECORDS SUMMARY | 2024-05-14 22:23 | XMS_ITS | Encounter Summary ---
Author Name [facility] [place] Organization [facility] Address [address] [place] [address] Care Team Providers Care Dewer Name Role Phone KAL TATE Primary Care Provider Unavailabl e Insurance Providers: All historical and current Section Date Range: From patient's date of to the date document was created. This section includes the names of all active insurance providers for the patient. Insurance Provider Type of Coverage Plan Name Start of Policy Coverage End of Policy Coverage Group Number Member ID Insurance Provider's Telephone Number Policy Rosa's Name Patient's Relationship to Policy Rosa [facility] FEDERAL PREFERRED PROVIDER ORGANIZAT ION (PPO) BASIC SELF May 17, 2015 [id number] [phone] [place]ALINOBAM[place] BRIAN PATIENT BCBS [place] FEP PREFERRED PROVIDER ORGANIZAT ION (PPO) BASIC INDIV IDUAL May 17, 2015 [id number] DESGENOVEVABAMKolton PATIENT [employer] FEPRX PLAN PRESCRIPT ION CAREM ARK FEPRX May 08, 2010 [id number] DESGENOVEVABAMKolton BRIAN PATIENT [employer]-F EP BCBS PRESCRIPT ION FEP CAREM ARK May 08, 2010 [id number] [phone] [id number] [place] NUNO PATIENT Selected Encounter This section includes the information on record at [place] for the Encounter. Date/Time Encounter Type Encounter Description Reason Pro vider Source May 15, 2024 02:23 AM Outpatient Encounter ADMIN PAT ACTIVTIES (MASNONCT) IHE Encounter Template Text not used by [place] Plan of Treatment: Future Appointments (+ 6 months) and Future Tests (+/- 45 days) The Plan of Treatment section includes [facility] care activities for the [facility] [place] [facility] This section includes future appointments and future orders which are active, pending or scheduled. Future Appointments This section includes appointments that were scheduled to occur 6 months from the date of the Encounter, up to a maximum of 20 appointments. The data comes from all [place] treatment facilities. Appointment Date/Time Appointment Type Appointme nt Facility Name Jun 04, 2024 08:00 AM [place] [place] [facility] [facility] Jul 02, 2024 08:20 AM [facility] [place] [facility] Jul 03, 2024 08:45 AM [facility] [place] [facility] Jul 03, 2024 09:00 AM [facility] Jul 03, 2024 09:30 AM [facility] Jul 08, 2024 01:00 PM [facility]UL[facility] Jul 24, 2024 09:45 AM [facility] [place] [facility] Aug 08, 2024 09:00 AM AMBULATORY - [facility]AB MEDICIN [facility] Aug 08, 2024 11:00 AM AMBULATORY - [facility] MEDICIN [facility] Aug 08, 2024 01:00 PM AMBULATORY - [facility] MEDICIN [facility] Aug 30, 2024 04:00 PM [facility]UL[facility] Social History: Smoking Status (Most current) and Tobacco Use (All prior to encounter date) This section includes the most current, and the historical, smoking and tobacco- related health factors from the [place] facility where the Encounter took place. Current Smoking Status This section includes the most current smoking, or tobacco-related health factor, from the [facility] facility where the Encounter took place. Date/Time Current Smoking Status Comment [place] Jun 28, 2023 02:00 PM VA-TOBACCO USER EVERY DAY [facility] Tobacco Use History This section includes a history of the smoking, or tobacco-related health factors, that were collected on or before the date of the Encounter. The data comes from the [place] facility where the Encounter took place. Date/Time Smoking Status/Tobacco Use Comment F acility Jun 28, 2023 02:00 PM VA-TOBACCO USE ADVICE [facility] Jun 28, 2023 02:00 PM VA-TOBACCO USE AUTOMATION OPERATOR NO [facility] Jun 28, 2023 02:00 PM VA-TOBACCO USE MED NO [facility] Jun 28, 2023 02:00 PM VA-TOBACCO USE WI 30 MIN OF WAKEUP [facility] Jun 28, 2023 02:00 PM VA-TOBACCO USER EVERY DAY [facility] Jul 04, 2022 03:30 PM VA-TOBACCO DOESNT USE WI 30 MIN WAKEUP [facility] Jul 04, 2022 03:30 PM VA-TOBACCO USE 30 YEARS OR MORE [facility] Jul 04, 2022 03:30 PM VA-TOBACCO USE ADVICE [facility] Jul 04, 2022 03:30 PM VA-TOBACCO USE AUTOMATION OPERATOR NO [facility] Jul 04, 2022 03:30 PM VA-TOBACCO USE MED NO [facility] Jul 04, 2022 03:30 PM VA-TOBACCO USER EVERY DAY [facility] [place] Dec 07, 2020 03:00 PM VA-TOBACCO DOESNT USE WI 30 MIN WAKEUP [facility] Dec 07, 2020 03:00 PM VA-TOBACCO USE 30 YEARS OR MORE [facility] Dec 07, 2020 03:00 PM VA-TOBACCO USE ADVICE [facility] Dec 07, 2020 03:00 PM VA-TOBACCO USE AUTOMATION OPERATOR [facility] Dec 07, 2020 03:00 PM [facility] MED [facility] Dec 07, 2020 03:00 PM VA-TOBACCO USER EVERY [facility] October 04, 2017 12:30 PM CURRENT S[facility]KER [facility] October 04, 2017 12:30 PM V1-PT THINKING ABO UT QUIT [facility]BACCO [facility] Encounter Notes: All associated encounter notes This section contains the clinical notes associated to the Encounter. Date/Time Encounter Note(s) Provider Source May 15, 2024 02:23 AM PHARMACY NOTE: LOCAL TITLE: V1 PHARMACY CUSTOMER CARE MEDICATION RENEWAL STANDARD TITLE: PHARMACY NOTE DATE OF NOTE: MAY 15, 2024@02:23 ENTRY DATE: MAY 15, 2024@02:23:17 AUTHOR: JUAN MILLER EXP COSIGNER: URGENCY: STATUS: COMPLETED V1 PHARMACY CUSTOMER CARE MEDICATION RENEWAL Has ADDENDA Date: May Division: [place] Pt referred by Pharmacy Call Center for medication renewal: Non-controlled/maintenanc e medication Medications requested: [id number] ATORVASTATIN CALCIUM 80MG TAB Defer to primary care provider To be mailed . Please review and renew if appropriate. *This note was generated by [facility]/MD Pharmacy Customer Care. If you have any questions or need assistance, do not contact this author. Please refer all questions to your local, on-site pharmacy departments. /javi MILLER CPhT Hat Cleaner, MD/Pharmacy Customer Care Signed: 05/15/2024 02:23 Receipt Acknowledged By: 05/15/2024 08:32 /mayur/ Kelsea Carpio RN, BSN Primary Care 05/15/2024 13:05 /mayur/ Kal Tate MD Staff Physician 05/15/2024 ADDENDUM STATUS: COMPLETED Done. /mayur/ Kal Tate MD Staff Physician Signed: 05/15/2024 13:05 JUAN MILLER [facility]
[2024-10-29] VITALS (8 sets, daily range): BP systolic 81–104; BP diastolic 47–69; PULSE 60–74; RESP 12–19; TEMP 36.7–36.9; O2SAT 96–98; BMI 30.4
--- NOTE | ~2024-10-29 | CT_ITS ---
EXAMINATION: CT CERVICAL SPINE WITHOUT CONTRAST CLINICAL INFORMATION: Status post fall. COMPARISON: August 21, 2016. TECHNIQUE: Contiguous axial images through the cervical spine using 3 mm collimation with bone and soft tissue algorithm. Sagittal and coronal reformatted images acquired. DLP: 525.[address] examination was performed using dose optimization techniques as appropriate, variously including the following: *Automated exposure control *Adjustment of mA and/or kV according to patient size (this includes techniques or standardized protocols for targeted exams where dose is matched to indication/reason for exam; i.e. extremities or head) *Use of iterative reconstruction technique FINDINGS: Degenerative changes in the periodontal C1 region. Craniocervical junction is intact with normal alignment between the occipital condyles and lateral masses of C1. Marginal osteophyte formation and endplate sclerosis and chondral cyst formation and decreased intervertebral disc height at C5-6 and C6-7 levels. Grade 1 anterolisthesis C4-5. Bilateral facet joint hypertrophy at multiple levels from C3 to C7. C1 is intact. C2 is intact C3 is intact. C4 is intact. C5 is intact. C6 is intact. C7 is intact. No gross prevertebral compartment hematoma. Calcified plaques in the carotic arteries. Hyperdense nodular attenuation seen in the osseous segment of the external auditory canals, bilaterally. Edentulous, maxilla. Poor dentition, mandible.. CT/CT cervical spine wo IV con IMPRESSION: Multilevel cervical spondylosis C3 C7 without acute fracture or trauma-related listhesis. Grade 1 anterolisthesis C4-5 on a degenerative basis. Recommend direct inspection of the external auditory canals bilaterally. Fleischner guidelines were followed. Electronically signed by: Adolfo Ray MD 10/29/2024 12:04 PM EDT
--- NOTE | ~2024-10-29 | XR_ITS ---
EXAMINATION: XR FIRST DIGIT, RIGHT CLINICAL INFORMATION: fell COMPARISON: None available. TECHNIQUE: PA and oblique and lateral views of the right first digit. FINDINGS: Degenerative changes in the first carpometacarpal joint and metacarpophalangeal joint. No acute cortical disruption. No gross malalignment. No lytic or blastic lesions. Degenerative changes in the distal interphalangeal joints of the digits. Chondrocalcinosis in the ulnar carpal joint. XR/XR finger RT min 2V IMPRESSION: Degenerative changes without acute fracture or gross dislocation. Electronically signed by: Adolfo Ray MD 10/29/2024 12:20 PM EDT
--- NOTE | ~2024-10-29 | XR_ITS ---
EXAMINATION: XR CHEST CLINICAL INFORMATION: Near syncope COMPARISON: December 18, 2015 TECHNIQUE: Frontal view of the chest was obtained. FINDINGS: No consolidation pleural effusion or pneumothorax. No hyperinflation. Cardiomediastinal silhouette size is normal. Sternal wires. Mild multilevel thoracic spondylosis. Degenerative changes in the shoulders. XR/XR chest 1V IMPRESSION: No acute airspace disease. Electronically signed by: Adolfo Ray MD 10/29/2024 12:13 PM EDT
--- NOTE | ~2024-10-29 | CT_ITS ---
EXAMINATION: CT HEAD WITHOUT CONTRAST CLINICAL INFORMATION: Fall COMPARISON: August 21, 2016 TECHNIQUE: Contiguous axial imaging was performed from the skull base to vertex without intravenous administration of contrast. This CT examination was performed using dose optimization techniques as appropriate, variously including the following: *Automated exposure control *Adjustment of mA and/or kV according to patient size (this includes techniques or standardized protocols for targeted exams where dose is matched to indication/reason for exam; i.e. extremities or head) *Use of iterative reconstruction technique DLP: 793 mGY*cm FINDINGS: There is no acute ischemic change. There is no intracranial hemorrhage. There is no mass-effect or midline shift. Basal cisterns and ventricles are within normal limits for age/cerebral volume. Orbits are symmetrical and unremarkable. Small mucous retention cysts are present in the left maxillary sinus. There are no bony abnormalities. Moderate cerumen is noted in the left greater than right external auditory canals. CT/CT head/brain wo IV con IMPRESSION: No acute intracranial abnormality. Moderate cerumen is noted in the left greater than right external auditory canals. Electronically signed by: Nicholas Moreno MD 10/29/2024 11:59 AM EDT
--- NOTE | 2024-10-29 11:18 | ED.UPPEXIN ---
HPI - Extremity Injury (Upper) General Chief Complaint: Fall Stated Complaint: thumb popped out of place Time Seen by Provider: 10/29/24 11:38 Source: patient Mode of arrival: ambulatory Limitations: no limitations History of Present Illness ED Provider: DR. Saxena HPI narrative: A 64-year-old male walked in from urgent care clinic for further evaluation. Patient with history of prostate cancer s/p prostatectomy and post surgery radiation therapy, patient reports dizziness and lightheadedness as a side effect after radiation therapy, last night patient got up very fast felt dizzy and lightheaded fell down tried to catch himself at his right hand in the chair with severe pain of right thumb, patient also report head injury with no LOC. Patient stated that he drinks fluids to keep himself hydrated. Related Data Home Medications ?Medication ?Instructions ?Recorded ?Confirmed allopurinol 300 mg tablet mg PO 02/27/23 09/06/23 aspirin 81 mg tablet,delayed 81 mg PO DAILY 02/27/23 09/06/23 release tamsulosin 0.4 mg capsule 0.4 mg PO DAILY 02/27/23 09/06/23 venlafaxine 150 mg 300 mg PO DAILY 02/27/23 09/06/23 capsule,extended release 24 hr atorvastatin 80 mg tablet 80 mg PO DAILY 04/18/23 09/06/23 naproxen 500 mg tablet 500 mg PO BID 04/18/23 09/06/23 Previous Rx's ?Medication ?Instructions ?Recorded levofloxacin 500 mg tablet 500 mg PO daily 3 days #3 tabs 04/18/23 furosemide 20 mg tablet (Lasix) 20 mg PO DAILY #4 tabs 02/22/24 gabapentin 300 mg capsule 300 mg PO TID #90 caps 02/22/24 thiamine HCl (vitamin B1) 100 mg 100 mg PO DAILY #30 tabs 02/22/24 tablet Allergies Allergy/AdvReac Type Severity Reaction Status Date / Time No Known Allergies (No Known Allergy Verified 10/29/24 11:20 Allergies*) Review of Systems Review of Systems: All other systems are reviewed and are negative Constitutional: Reports as per HPI and Reports no additional constitutional complaints Eyes: Reports as per HPI and Reports no additional eye complaints Reports system reviewed and no additional complaints, except as documented Cardiovascular: Reports as per HPI and Reports no additional cardiovascular complaints Respiratory: Reports as per HPI and Reports no additional respiratory complaints Gastrointestinal: Reports as per HPI and Reports no additional gastrointestinal complaints Genitourinary: Reports no additional female genitourinary complaints Musculoskeletal: Reports no additional musculoskeletal complaints Skin/Breast: Reports system reviewed and no additional complaints, except as docu Psychiatric: Reports no additional psychiatric complaints Endocrine: Reports no additional endocrine complaints Hematologic/Lymphatic: Reports no additional hematologic/lymphatic complaints Allergic/Immunologic: Reports no additional allergic/immunologic complaints Reports system reviewed and no additional complaints, except as documented and Reports Abnormal speech present [facility] Past Medical History Medical History Unspecified hearing loss, unspecified ear Tobacco use Pure hypercholesterolemia, unspecified Major depressive disorder, single episode, unspecified Gout Generalized anxiety disorder Benign prostatic hyperplasia without lower urinary tract symptoms Atherosclerotic heart disease of [place] coronary artery without angina pectoris Alcohol dependence Social History Social History Patient Tobacco Use Status: Current everyday Tobacco user Smoked in Last 30 Days: Yes Use of substances other than those prescribed or required for medical reasons: Yes Substance Use Type: Marijuana Advance Directives: Yes Advance Directives Information Provided: No Advance Directives on File: No Do you have a plan to hurt others: No Plan Physical Exam Vital Signs: Vital Signs: Last Vital Signs Temp 98.0 F 10/29/24 14:28 Pulse 62 10/29/24 14:28 Resp 19 10/29/24 14:28 BP 100/57 L 10/29/24 14:28 Pulse Ox 96 10/29/24 14:28 O2 Del Method Room Air 10/29/24 14:28 BMI result Body Mass Index 30.4 Vital signs have been reviewed and appear to be correct. Blood pressure low. Heart rate normal. Respiratory rate normal. Temperature normal. Oxygen saturation normal. Appearance: Alert. Oriented X3. No acute distress. Head: Normal external exam. Normocephalic. Atraumatic. No [place] signs noted. No raccoon eyes noted Eyes: PERRLA. EOMI. Conjunctiva and sclera normal. Eyelids normal. ENT: TM's Normal. Pharynx normal. Uvula midline. Moist mucous membranes. No trismus noted. No drooling noted. No muffled voice noted. Neck: Normal inspection. Neck supple. FROM. No adenopathy. Thyroid Normal. No meningeal signs. No neck mass noted. CVS: Normal heart rate and rhythm. Heart sound normal. No murmurs noted. Pulses normal throughout. Respiratory: No respiratory distress. Painless inspiration. Breath sounds normal. No wheezes/rales/rhonchi noted. Chest nontender. No accessory muscle usage noted or decreased air movement noted. Abdomen: Soft and nontender. Bowel sounds normal in all 4 quadrants. No distention noted. No organomegaly noted. No visible injury noted. Back: No CVA tenderness. Full range of motion noted. Skin: Skin warm and dry. Normal skin color. Normal skin turgor. No rashes/lesions/lacerations noted. Extremities: Right hand: Swelling and tenderness over base of the right thumb, no obvious deformity, cap refill is less than 2 seconds, intact neurovascular exam. Neuro: Oriented X 3. Cranial nerve exam: II-XII are grossly intact No motor deficit. No sensory deficit. Reflexes normal. Course Course Course Narrative: Nadia Wynne PA-C 11:19 am 10/29/2024 RME, will defer full ROS and PE to main provider Fell last night, unsure if LOC or not. Has headache and right thumb pain. Feels lightheaded, R hand dominant. On baby aspirin no anticoagulation. Saw UC in [place], was told subluxed right thumb BP low 81/47. Fall at 11 pm, no EtOH use. Reevaluation(s) Reevaluation #1: A 64-year-old male s/p radiation therapy for prostate cancer, times get hypotension that he believes secondary to drinking enough water, patient been getting frequent fall due to dizziness and lightheadedness. Patient has been feeling this ever since he finished his radiation therapy. Patient stated that he is drinking plenty of fluids normally and eating normally at home. Patient is scheduled to see his PCP tomorrow, patient was offered hospitalization to monitor blood pressure but patient declined Time: 14:00 Medications Administered Discontinued Medications Generic Name Dose Route Start Last Admin Trade Name Freq PRN Reason Stop Dose Admin Lactated Ringer's 1,000 mls @ 999 mls/hr 10/29/24 11:22 10/29/24 12:32 Lr IV 10/29/24 12:22 999 mls/hr .Q1H1M ONE Administration Medical Decision Making Differential Diagnosis Differential Diagnoses: The differential diagnosis associated with the presentation includes (ACS, dehydration, hypovolemia, side-effect, electrolyte derangement, severe anemia.) Admission/Observation Consideration of admission/observation: Escalation of care including admission/observation considered Lab Data MDM Lab Attestation statement: I reviewed the patient's lab results. 10/29/24 11:54 10/29/24 11:54 Labs: Lab Results 10/29/24 Range/Units 11:54 WBC 6.9 (4.8-10.8) X10*3/uL RBC 4.53 L (4.60-5.80) X10*6/uL Hgb 13.1 L (14.0-18.0) g/dl Hct 40.5 L (42.0-52.0) % MCV 89.4 (80.0-98.0) fL MCH 28.9 (27.0-33.0) pg MCHC 32.3 (31.0-36.0) g/dl RDW 15.8 (11.0-16.0) % Plt Count 162 (160-400) X10*3/uL MPV 10.3 (9.4-12.4) fL Immature Gran % (Auto) 1.3 H (0.0-0.4) % Neut % (Auto) 73.7 H (45-73) % Lymph % (Auto) 10.7 L (20-40) % [place] % (Auto) 8.8 (2-11) % Eos % (Auto) 5.1 H (0-4) % Baso % (Auto) 0.4 (0-2) % Lymph # (Auto) 0.7 L (1.2-4.9) X10*3/uL [place] # (Auto) 0.6 (0.1-1.2) X10*3/uL Eos # (Auto) 0.4 (0.0-0.4) X10*3/uL Baso # (Auto) 0.0 (0.0-0.2) X10*3/uL Abs Immat Gran (auto) 0.09 H (0.00-0.03) X10*3/uL Absolute Neuts (auto) 5.1 (2.0-8.3) x10*3/uL Absolute Nucleated RBC 0.000 (0.0-0.012) X10*3/uL Nucleated RBC % (auto) 0.0 (0.0-0.2) /100WBC PT 10.6 L (10.9-12.4) SEC INR 0.9 (0.9-1.1) Sodium 141 (135-145) mmol/L Potassium 4.1 (3.3-5.1) mmol/L Chloride 102 (96-108) mmol/L Carbon Dioxide 32 H (22-29) mmol/L Anion Gap 11 L (12-20) BUN 19 H (9-16) mg/dL Creatinine 0.90 (0.5-1.4) mg/dL Estim Creat Clear Calc 91.8 Estimated GFR > 60 Random Glucose 85 (60-115) mg/dL Calcium 9.4 (8.4-10.2) mg/dL Total Bilirubin 0.5 (0.0-1.0) mg/dL AST 17 (5-37) U/L ALT 16 (0-40) U/L Alkaline Phosphatase 58 (39-117) U/L Troponin I High Sens < 2.7 (<3.5-35.0) ng/L Total Protein 7.0 (6.5-8.0) g/dL Albumin 4.2 (3.5-5.0) g/dL Independent Interpretation I performed an independent interpretation of an: Plain X-Ray (Right hand x-ray:Degenerative changes without acute fracture or gross dislocation. ) and CT Scan (Head/C-spine CT: No acute injury.) Radiology Impression Discussion of test interpretation with radiology: I have reviewed the radiologist's reading. Discharge Plan Discharge Clinical Impression: Orthostatic hypotension, Fall, Injury of hand, right Patient Disposition: Home, Self-Care Instructions: Dizziness (ED) Additional Instructions: Supine to standing position too fast take few sec before he stand up, drink plenty of fluids, follow-up with PCP. Prescriptions: No Action furosemide [Lasix] 20 mg tablet 20 mg PO DAILY Qty: 4 0RF gabapentin 300 mg capsule 300 mg PO TID Qty: 90 0RF thiamine HCl (vitamin B1) 100 mg tablet 100 mg PO DAILY Qty: 30 0RF venlafaxine 150 mg capsule,extended release 24hr 300 mg PO DAILY tamsulosin 0.4 mg capsule 0.4 mg PO DAILY allopurinol 300 mg tablet PO aspirin 81 mg tablet,delayed release (DR/EC) 81 mg PO DAILY naproxen 500 mg tablet 500 mg PO BID atorvastatin 80 mg tablet 80 mg PO DAILY levofloxacin 500 mg tablet 500 mg PO daily 3 Days Qty: 3 0RF Rx Instructions: take 1 tablet day before procedure, 1 tablet day of procedure and 1 tablet day after procedure Referrals: Pedro Peacock MD [Physician, Orthopedics] Kal Tate MD [Primary Care Provider, Internal Medicine] Interventions: ED Discharge Assessment Last Done: 10/29/24 14:28 Discharge Date/Time: 10/29/24 14:30 Print Language: Slovak
--- NOTE | 2024-10-29 11:22 | ECG_ITS ---
Test Reason : SYNCOPE Blood Pressure : */* mmHG Vent. Rate : 60 BPM Atrial Rate : 60 BPM P-R Int : 144 ms QRS Dur : 130 ms QT Int : 464 ms P-R-T Axes : 33 18 16 degrees QTcB Int : 464 ms Normal sinus rhythm Right bundle branch block Abnormal ECG When compared with ECG of 22-Feb-2024 10:13, Right bundle branch block is now Present Referred By: Nadia Wynne Electronically Signed By: LUIS GUADARRAMA
[2024-10-29 12:01] LABS: MANUAL DIFF FLAG NO
--- NOTE | 2024-10-29 12:06 | PC.NURSE ---
Addendum entered by Saida York RN 10/29/24 12:07: Patient is a 64-year-old male walked in from urgent care clinic for further evaluation. Patient with history of prostate cancer s/p prostatectomy and post surgery radiation therapy which he has completed, patient reports dizziness and lightheadedness as a side effect after radiation therapy, last night patient got up very fast felt dizzy and lightheaded fell down tried to catch himself at his right hand in the chair with severe pain of right thumb, patient also report head injury with no LOC. Patient alert and oriented. Lungs coarse throughout. Positive smoker. Respirations even and non-labored, Abdomen soft, non-tender with positive bowel sounds. No LE edema noted. Original Note: Medical History Unspecified hearing loss, unspecified ear Tobacco use Pure hypercholesterolemia, unspecified Major depressive disorder, single episode, unspecified Gout Generalized anxiety disorder Benign prostatic hyperplasia without lower urinary tract symptoms Atherosclerotic heart disease of [place] coronary artery without angina pectoris Alcohol dependence
[2024-10-29 12:08] LABS: Basophils Percent Auto 0.4 % (0-2); Eosinophils Absolute Auto 0.4 X10*3/uL (0.0-0.4); Eosinophils Percent Auto 5.1 % (0-4); Hematocrit 40.5 % (42.0-52.0); Hemoglobin 13.1 g/dl (14.0-18.0); Imm Gran Abs Auto 0.09 X10*3/uL (0.00-0.03); Imm Gran Pct Auto 1.3 % (0.0-0.4); Lymphocytes Absolute Auto 0.7 X10*3/uL (1.2-4.9); Lymphocytes Percent Auto 10.7 % (20-40); Mean Corpuscular HGB Conc 32.3 g/dl (31.0-36.0); Mean Corpuscular Hemoglobin 28.9 pg (27.0-33.0); Mean Corpuscular Volume 89.4 fL (80.0-98.0); Mean Platelet Volume 10.3 fL (9.4-12.4); Monocytes Absolute Auto 0.6 X10*3/uL (0.1-1.2); Monocytes Percent Auto 8.8 % (2-11); Neutrophils Absolute Auto 5.1 x10*3/uL (2.0-8.3); Neutrophils Percent Auto 73.7 % (45-73); Platelet Count 162 X10*3/uL (160-400); Red Blood Count 4.53 X10*6/uL (4.60-5.80); Red Cell Distribution Width 15.8 % (11.0-16.0); White Blood Count 6.9 X10*3/uL (4.8-10.8)
[2024-10-29 12:13] LABS: INTERNATIONAL NORM RATIO 0.9 (0.9-1.1); Prothrombin Time 10.6 SEC (10.9-12.4)
[2024-10-29 12:21] LABS: Alanine Aminotransferase 16 U/L (0-40); Albumin Level 4.2 g/dL (3.5-5.0); Alkaline Phosphatase 58 U/L (39-117); Anion Gap 11 (12-20); Aspartate Amino Transferase 17 U/L (5-37); Bilirubin Total 0.5 mg/dL (0.0-1.0); Blood Urea Nitrogen 19 mg/dL (9-16); Calcium 9.4 mg/dL (8.4-10.2); Carbon Dioxide 32 mmol/L (22-29); Chloride 102 mmol/L (96-108); Creatinine Clr Calc Pharmacy 91.8; Estimated Glomerular Filt Rate > 60; Glucose Random 85 mg/dL (60-115); Potassium 4.1 mmol/L (3.3-5.1); Sodium 141 mmol/L (135-145)
[2024-10-29 12:31] LABS: Troponin-I High Sensitivity < 2.7 ng/L (<3.5-35.0)
[2024-10-29] MEDS: Lactated Ringers 1,000 ML 999 ML IV (12:32)
== END 2024-10-29 14:30 | disposition home or self-care (01) ==
PROVIDERS: Physician Assistant Medical; Emergency Provider Emergency Medicine; PCP Internal Medicine
DX: I95.1 Orthostatic hypotension (principal); R42 Dizziness and giddiness; S69.91XA Unspecified injury of right wrist, hand and finger(s), initial encounter; W18.39XA Other fall on same level, initial encounter; R29.6 Repeated falls; Z91.81 History of falling; R79.1 Abnormal coagulation profile; C61 Malignant neoplasm of prostate; Z92.3 Personal history of irradiation; F17.210 Nicotine dependence, cigarettes, uncomplicated; Y93.89 Activity, other specified; Y92.019 Unspecified place in single-family (private) house as the place of occurrence of the external cause; Y99.9 Unspecified external cause status; Z79.82 Long term (current) use of aspirin; Z79.02 Long term (current) use of antithrombotics/antiplatelets; Z79.899 Other long term (current) drug therapy
CPT/HCPCS: 36415; 70450; 71045; 72125; 73140; 80053; 84484; 85025; 85610; 93005; 96360; 99284; 99285; J7120

== ENCOUNTER → 2024-10-29 11:22 | Outpatient (BNV) | payer OTHER, BC, SELFPAY | PROVIDERS: Emergency Provider Emergency Medicine; PCP Internal Medicine; Visit Provider Internal Medicine | DX: I45.10 Unspecified right bundle-branch block (principal) | CPT/HCPCS: 93010 ==

== ENCOUNTER → 2024-10-29 11:22 | Outpatient (BNV) | payer BC, SELFPAY | PROVIDERS: Emergency Provider Emergency Medicine; PCP Internal Medicine; Visit Provider Radiology Diagnostic Radiology | DX: S09.90XA Unspecified injury of head, initial encounter (principal); H61.23 Impacted cerumen, bilateral; R55 Syncope and collapse; M79.641 Pain in right hand | CPT/HCPCS: 70450; 71045; 72125; 73140 ==

== ENCOUNTER 2025-02-28 14:31 | Outpatient (AMB) | payer OTHER, SELFPAY ==
[2025-02-28 14:39] VITALS: BMI 30.3
--- NOTE | 2025-02-28 14:39 | A.OFFVIS_ITS ---
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 Patient presented to [facility] ED on 10/29/24 reporting he fell while having an episode of dizziness, catching himself with his right hand. No dislocation on fractures seen on x-ray. Patient complains of pain all around the thumb. He is also experiencing numbness and tinging of his right IP joint as well as his right 2nd, 3rd, 4th, and 5th digits. He has tried ice and heat with minimal relief. No previous injuries or surgeries on his right hand. 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 Patient presented to [facility] ED on 10/29/24 reporting he fell while having an episode of dizziness, catching himself with his right hand. No dislocation on fractures seen on x-ray. Patient complains of pain all around the thumb. Patient reports that he feels the thumb feels ?unstable?. He is also experiencing numbness and tinging of his right IP joint as well as his right 2nd, 3rd, 4th, and 5th digits. He has tried ice and heat with minimal relief. No previous injuries or surgeries on his right hand. [facility] Medical History (Updated 02/28/25 @ 17:11 by POORNIMA Ch) Unspecified hearing loss, unspecified ear Tobacco use Pure hypercholesterolemia, unspecified Major depressive disorder, single episode, unspecified Gout Generalized anxiety disorder Benign prostatic hyperplasia without lower urinary tract symptoms Atherosclerotic heart disease of [place] coronary artery without angina pectoris Alcohol dependence Surgical History (Updated 02/28/25 @ 14:44 by JUANY Spear) History of shoulder surgery Social History (Updated 02/28/25 @ 14:43 by JUANY Spear) Alcohol intake: former Patient Tobacco Use Status: Current everyday Tobacco user Substance Use Type: Marijuana Current occupational status: retired Current occupation: rt handed Review of Systems Const All systems reviewed & are unremarkable except as noted in HPI and below Physical Exam Vital Signs: BMI result Body Mass Index 30.3 Extrem Other: Patient is alert, oriented, and in no acute distress. Neuro: Normal sensation of the tips of all digits of the right hand at this time Vascular: Cap refill brisk Pain: Tenderness to palpation diffusely throughout the right thumb ROM: Patient is able to flex and extend the right thumb fully No noted ligamentous laxity with varus and valgus testing Skin: No lacerations or abrasions. General: There is a visible and palpable deformity at the MCP joint of the right thumb No ecchymosis, erythema, or evidence of infection. Psych: Appears grossly normal Affect normal Attitude cooperative Results Reviewed Results Reviewed: X-rays obtained in the office today and independently reviewed by me, Marcus Zelaya PA-C, demonstrate no fracture or acute bony abnormality of the right thumb, concerning for potential chronic subluxation of the right thumb MCP joint. Assessment & Plan Assessment & Plan (1) Subluxation of right thumb: Code(s): S63.101A - Unspecified subluxation of right thumb, initial encounter Category: Medical Plan 1. Chronic subluxation of right thumb Date of injury 10/29/2024 Patient is educated about this condition Patient is educated about the typical treatment course At this time, patient is referred to Dr. Nazario for next available appointment for discussion of what appears to be a chronic instability of the MCP joint of the right thumb discussion of what further treatment might be indicated Patient is also provided with a comfort cool thumb spica brace to wear when his thumbs particularly bothering him Patient understands this is amenable to this plan Follow-up next available appointment with Dr. Nazario, sooner with any acute concerns Coding Level of Care Code New Pt Level 3 (45198) Diagnoses Subluxation of right thumb S63.101A
--- OUTSIDE RECORDS SUMMARY | 2025-02-28 16:23 | XMS_ITS | Encounter Summary ---
Author Organization [facility] Address [address] [place] [address] Care Team Providers Care Plug Stitcher Name Role Phone Eliseo Canas MD Primary Care Provider Reason for Visit * Reason Comments Appointment Encounter Details Date Type Department Care Team (Late st Contact Info) Description 01/04/2024 Telephone [facility] [address] [place] [id number] Juan Alberto Aviles MD [address] [address] Appointment Social History Tobacco Use Types Packs/Day Years Used Date Smoking Tobacco: Never Assessed Sex and Gender Information Value Date Recorded Sex Assigned at Not on file Legal Sex Male 10:27 AM EDT Gender Identity Not on file Sexual Orientation Not on file documented as of this encounter Plan of Treatment Not on file documented as of this encounter Visit Diagnoses Not on filedocumented in this encounter Care Teams Plug Stitcher Relationship Specialty Start Date End Date Eliseo Canas MD [address] [place] [address] [address] [id number] PCP - General Urology 09/07/23 documented as of this encounter
--- OUTSIDE RECORDS SUMMARY | 2025-02-28 16:23 | XMS_ITS | Clinical Summary ---
Author Organization [facility] Address [address] [place] [address] Care Team Providers Care Front Desk Clerk Name Role Phone Eliseo Canas MD Primary Care Provider [phone] Active Problems Problem Noted Date Diagnosed Date Prostate cancer 02/26/2024 Social History Tobacco Use Types Packs/Day Years Used Date Smoking Tobacco: Never Assessed Sex and Gender Information Value Date Recorded Sex Assigned at Not on file Legal Sex Male 10:27 AM EDT Gender Identity Not on file Sexual Orientation Not on file Plan of Treatment Health Maintenance Due Date Last Done Comments Hepatitis C Virus Screening 1961 HIV Screening 1974 DTaP/Tdap/Td Vaccines (1 - Tdap) 1980 Pneumococcal Vaccines 50+ (1 of 2 - PCV) 1980 Zoster (Shingles) Vaccine (1 of 2) 1980 Colonoscopy 2006 Influenza Vaccine 12/06/2024 06/07/2018, , 02/14/2012, Additional history exists COVID-19 Vaccine (6 - Moderna risk 2023- season) 2025 01/30/2024, 01/20/2022, 04/22/2021, Additional history exists RSV Vaccine 50 years and older and Patients (1 - 1-dose 75+ series) 2036 Hepatitis B Vaccines Aged Out No long er eligible based on patient's age to complete this topic Insurance [facility] Care Teams Front Desk Clerk Relationship Specialty Start Date End Date Eliseo Canas MD [address] [facility] [address] [id number] PCP - General Urology 09/07/23
--- OUTSIDE RECORDS SUMMARY | 2025-02-28 16:23 | XMS_ITS | Clinical Summary ---
Author Organization [facility] Address [address] [place] [address] Care Team Providers Care Wireless Technician Name Role Phone Tess Mcduffie MD Unavailable [phone] Tess Mcduffie MD Primary Care Provider Allergies No known active allergies Medications atorvastatin (LIPITOR) 80 mg tablet Take 80 mg by mouth in the morning. Active venlafaxine XR (Effexor XR) 150 mg 24 hr capsule Take 300 mg by mouth in the morning. Active tamsulosin (Flomax) capsule Take 0.4 mg by mouth in the morning. Active allopurinoL (ZYLOPRIM) 300 mg tablet Take 150 mg by mouth in the morning. Active aspirin 81 mg chewable tablet Take 81 mg by mouth in the morning. Active traZODone (DESYREL) 100 mg tablet Take 100-200 mg by mouth nightly. Active naproxen sodium (Aleve) 220 mg tablet Take 440 mg by mouth in the morning. Active busPIRone (BUSPAR) 5 mg tablet Take 5 mg by mouth in the morning and 5 mg before bedtime. Active gabapentin (NEURONTIN) 300 mg capsule Take 300 mg by mouth in the morning and 300 mg at noon and 300 mg before bedtime. Active furosemide (LASIX) 20 mg tablet Take 20 mg by mouth in the morning. Active thiamine (VITAMIN B-1) 100 mg tablet Take 100 mg by mouth in the morning. Active Active Problems Problem Noted Date Diagnosed Date Pre-syncope 02/28/2024 Assessment & Plan (02/29/2024 1:10 PM EDT): Presented after an episode of lightheadedness, nausea, chills, and diaphoresis while defecating. Presented with a BP of 194/87. However, BP lowered to 96/63 without any medications 30 minutes later. Patient also reports history of postural hypotension in the past for which he was admitted in December 2023. Echo done at that time with normal EF, no wall motion abnormalities, and no valvular disease. Most likely vasovagal in nature, less likely cardiogenic. - Assess orthostatics after IV fluid hydration - Continue Telemetry Assessment & Plan (02/28/2024 4:06 PM EDT): Presented after an episode of lightheadedness, nausea, chills, and diaphoresis while defecating. Presented with a BP of 194/87. However, BP lowered to 96/63 without any medications 30 minutes later. Patient also reports history of postural hypotension in the past for which he was admitted in December 2023. Echo done at that time with normal EF, no wall motion abnormalities, and no valvular disease. Most likely vasovagal in nature, less likely cardiogenic. 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 Troponin 231. EKG with no ischemic changes. Patient does report a 1 second episode of left-sided chest pain during the presyncopal episode but reports this pain is chronic for him and has been intermittent over the past 3 months. Has been previously worked up for this in [place] per [facility] everywhere and workup came back unremarkable. Troponinemia likely due to demand ischemia. - Repeat troponin - Consult cardiology if repeat troponin is elevated and consider NSTEMI management. 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 Troponin 231. EKG with no ischemic changes. Patient does report a 1 second episode of left-sided chest pain during the presyncopal episode but reports this pain is chronic for him and has been intermittent over the past 3 months. Has been previously worked up for this in [place] per care everywhere and workup came back unremarkable. Troponinemia likely due to demand ischemia. - Repeat troponin - Consult cardiology if repeat troponin is elevated and consider NSTEMI management. - BNP pending Lactic acidosis 02/28/2024 Assessment & Plan (02/29/2024 1:10 PM EDT): Resolved Lactic acid 4.8 on admission. Low concern for infectious etiology at this time as patient is afebrile, lungs CTAB, and no signs of infection on exam. Resolved on repeat - 1.0.. Assessment & Plan (02/28/2024 4:06 PM EDT): Resolved Lactic acid 4.8 on admission. Low concern for infectious etiology at this time as patient is afebrile, lungs CTAB, and no signs of infection on exam. Resolved on repeat - 1.0.. Resolved Problems Problem Noted Date Diagnosed Date Resolved Date Pneumonia due to infectious organism, unspecified laterality, unspecified part of lung 02/28/2024 02/28/2024 Pneumonia due to infectious organism, unspecified laterality, unspecified part of lung 02/28/2024 02/29/2024 Social History Tobacco Use Types Packs/Day Years Used Date Smoking Tobacco: Every Day Cigarettes Smokeless Tobacco: Never Tobacco Cessation:Ready to Q uit: Not Asked; Counseling Given: Not Answered Alcohol Use Standard Drinks/Week Comments Not Currently 0 (1 standard drink = 0.6 oz pure alcohol) Pt states he quit alcohol 40 days ago [facility] [employer] Answer Date Recorded In the past 12 months has [facility] [employer], or water [employer] threatened to shut off services in your home? No 02/28/2024 Humiliation, Afraid, Rape, and Kick questionnair e Answer Date Recorded Within the last year, have y ou been afraid of your partner or ex-partner? No 02/28/2024 Within the last year, have y ou been humiliated or emotionally abused in other ways by your partner or ex-partner? No Within the last year, have y ou been kicked, hit, slapped, or otherwise physically hurt by your partner or ex-partner? No 02/28/2024 Within the last year, have y ou been raped or forced to have any kind of sexual activity by your partner or ex-partner? No 02/28/2024 Overall Financial Resource Strain (CARDIA) Answe r Date Recorded How hard is it for you to pa y for the very basics like food, housing, medical care, and heating? Not very hard 02/28/2024 Hunger Vital Sign Answer Date Recorded Within the past 12 months, y ou worried that your food would run out before you got the money to buy more. Never true 02/28/20 24 Within the past 12 months, t he food you bought just didn't last and you didn't have money to get more. Never true 02/28/2024 PRAPARE - Transportation Answer Date Re corded In the past 12 months, has l ack of transportation kept you from medical appointments or from getting medications? No 02/28/2024 Lack of Transportation (Non-Medical) Not on file 02/28/2024 Housing Stability Vital Sign Answer Kristopher e Recorded Unable to Pay for Housing in the Last Year Not o n file 02/28/2024 Number of Times Moved in the Last Year Not on fi le 02/28/2024 At any time in the past 12 m [facility], were you homeless or living in a detention (including now)? No 02/28/2024 Sex and Gender Information Value Date Recorded Sex Assigned at Not on file Legal Sex Male 10:18 AM EDT Gender Identity Not on file Sexual Orientation Not on file Last Filed Vital Signs Vital Sign Reading Time Taken Comments Blood Pressure 129/88 02/29/2024 11:40 AM EDT Pulse 54 02/29/2024 11:40 AM EDT Temperature 37.1 C (98.7 F) 02/29/2024 11:40 AM EDT Respiratory Rate 16 02/29/2024 11:40 AM EDT Oxygen Saturation 96% 02/29/2024 11:40 AM EDT Inhaled Oxygen Concentration - - Weight 85.5 kg (188 lb 9.6 oz) 02/29/2024 6:00 A M EDT Height 175.3 cm (5' 9 ) 02/28/2024 10:21 AM EDT Body Mass Index 27.85 02/28/2024 10:21 AM EDT Plan of Treatment Health Maintenance Due Date Last Done Comments CT Colonography 1961 Colonoscopy 1961 Colorectal Cancer Screening 1961 FIT-DNA (Cologuard) 1961 FIT 1961 FOBT 1961 Flex Sigmoidoscopy - 5y 1961 HIV Screening 1961 Hepatitis C Screening 1979 Influenza Vaccine (#1) 2025 9, 03/07/2013, 02/14/2012, Additional history exists DTaP,Tdap,and Td Vaccines (3 - Td or Tdap) 07/04/2032 07/04/2022, 10/03/2011, 02/26/2001, Additional history exists Meningococcal Vaccine Aged Out 10/22/1996 No manuel padmini eligible based on patient's age to complete this topic Hepatitis A Vaccines Aged Out 03/15/1998, 10/22/18 97 No longer eligible based on patient's age to complete this topic MMR Vaccines Aged Out 03/31/1998 No longer eligi ble based on patient's age to complete this topic Zoster Vaccines Completed 12/07/2020, 07/18/2017 Pneumococcal Vaccine, 50+ Years Completed 07/04/2022, 07/26/2011 COVID-19 Vaccine Completed 01/30/2024, , 04/22/2021, Additional history exists HPV Vaccines Aged Out No longer eligi ble based on patient's age to complete this topic Insurance [employer] Advance Directives For more information, please contact: [phone] * Full Code (Latest Code Status on File) Date Activated Date Inactivated Comments 02/28/2024 2:50 PM 02/29/2024 3:31 PM * Full Code Date Activated Date Inactivated Comments 02/28/2024 1:50 PM 02/28/2024 2:50 PM Care Teams Wireless Technician Relationship Specialty Start Date End Date Tess Mcduffie MD [address] [place] [id number] PCP - Insurance Payer PCP 02/28/24 [place] [address] PCP - General Primary Care 02/28/24
== END 2025-02-28 15:41 | disposition home or self-care (01) ==
LOC: HO.HOS 14:31
PROVIDERS: PCP Internal Medicine
DX: S63.101A Unspecified subluxation of right thumb, initial encounter (principal)
CPT/HCPCS: 99203

== ENCOUNTER 2025-03-26 10:51 | Outpatient (AMB) | payer OTHER, SELFPAY ==
--- OUTSIDE RECORDS SUMMARY | 2025-03-20 23:59 | XMS_ITS | Continuity of Care Document ---
Author Organization [facility] ter Address [address] [place] [address]- Care Team Providers Care Rail Project Engineer Name Role Phone Reta MERCEDES, Tess Primary Care Physician [place] [facility] [place] - 03/20/[address] [address] Attending Physician: Frank Adkins DO Admitting Physician: Frank Adkins DO Encounter Type: Preadmit Daystay Allergies, Adverse Reactions, Alerts No Known Allergies Immunizations Given and Recorded Vaccine Date Status Refusal Reason RSV vaccine preF3, recombinant 10/30/24 Recorded SARS-CoV-2(COVID-19)mRNA-LNP vac([id number]) 01/30/24 Recorded pneumococcal 20-valent conjugate vaccine 07/04/22 Recorded tetanus/diphtheria/pertussis, acel(Tdap) 07/04/22 Recorded tetanus/diphtheria/pertussis, acel(Tdap) 10/03/11 Given zoster vaccine, inactivated 12/07/20 Recorded influenza virus vaccine, inactivated 1 06/07/18 Gi elliott influenza virus vaccine, inactivated 03/07/13 Give n influenza virus vaccine, inactivated 02/14/12 Give n influenza virus vaccine, inactivated 07/26/11 Give n pneumococcal 23-valent vaccine 07/26/11 Given 1Result Comment: [06/07/2018] [facility] [id number] Medications allopurinol 300 mg oral tablet 300 mg, 1, tablet, By Mouth, Daily, Refills 0, Maintenance, 06/23/20 2:58:00 PM EST, Partial fill upon patient request if the prescription is for a schedule II opioid drug. Start Date: 06/23/20 Status: Ordered Medication Dispense Status: Completed Total Allowed Fills: 1 Fills Dispensed: 0 Amoxicillin See Instructions, Maintenance, By Mouth, 02/13/25 4:51:00 PM EDT Start Date: 02/13/25 Status: Ordered Medication Dispense Status: Completed Total Allowed Fills: 1 Fills Dispensed: 0 aspirin 81 mg oral tablet 1 tablet = 81 mg, By Mouth, Daily, # 30 tablet, 11 Refills, Maintenance, 07/28/11 12:11:43 PM EDT, Tablet Start Date: 07/28/11 Status: Ordered Medication Dispense Status: Completed Quantity: 30.0 Unit: tablet Total Allowed Fills: 12 Fills Dispensed: 0 atorvastatin 80 mg oral tablet 1 tablet = 80 mg, By Mouth, Daily at bedtime, # 30 tablet, 3 Refills, Maintenance, 03/26/21 2:29:00PM EST, Tablet, [email or web address] #[id number], 172, cm, 03/26/21 14:22:00 EST, Height, 94, kg, 02/22/21 11:27:00 EDT, Dry Weight Start Date: 03/26/21 Status: Ordered Medication Dispense Status: Completed Quantity: 30.0 Unit: tablet Total Allowed Fills: 4 Fills Dispensed: 0 finasteride 5 mg oral tablet 1 tablet = 5 mg, By Mouth, Daily, # 30 tablet, 0 Refills, Maintenance, 01/10/25 12:08:00 PM EDT, Tablet, [email or web address] #[id number], Partial fill upon patient request if the prescription is for a schedule II opioid drug., 178, cm, 01/10/25 11:31:00 EDT, Height, 84, kg, 01/10/25 7:47:00 EDT, Dry Weight Start Date: 01/10/25 Status: Ordered Medication Dispense Status: Completed Quantity: 30.0 Unit: tablet Total Allowed Fills: 1 Fills Dispensed: 0 gabapentin 800 mg oral tablet 1 tablet = 800 mg, By Mouth, 3 times a day, # 90 tablet, 1 Refills, Maintenance, 01/28/25 12:02:00 PM EDT, Tablet, [email or web address] #[id number], Partial fill upon patient request if the prescription isfor a schedule II opioid drug., 178, cm, 01/10/25 11:31:00 EDT, Height, 84, kg, 01/10/25 7:47:00 EDT, Dry Weight Start Date: 01/28/25 Status: Ordered Medication Dispense Status: Completed Quantity: 90.0 Unit: tablet Total Allowed Fills: 2 Fills Dispensed: 0 MiraLax oral powder for reconstitution = 17 Gm, By Mouth, Daily at bedtime, (dissolve in water or juice)\, # 527 Gm, 11 Refills, Maintenance, 08/27/24 5:58:00 PM EDT, [email or web address] #[id number], Partial fill upon patient request if the prescription is for a schedule II opioid drug., 17 Gm By Mouth Daily at bedtime,Instr:(dissolve in water or juice)\, 170.6, cm, 07/18/24 11:16:00 EDT, Height, 84.4, kg, 06/04/24 15:10:00 EST, Dry Weight Start Date: 08/27/24 Status: Ordered Medication Dispense Status: Completed Quantity: 527.0 Unit: g Total Allowed Fills: 12 Fills Dispensed: 0 MiraLax oral powder for reconstitution See Instructions, 3 and 2 days before colonoscopy 17x2 Gm (mixed with water) 3 times a day., # 238 Gm, 0 Refills, Maintenance, 02/06/25 1:26:00 PM EDT, [email or web address] #[id number], Partial fill upon patient request if the prescription is for a schedule II opioid drug., 3 and 2 days before colonoscopy 17x2 Gm (mixed with water) 3 times a day., 178, cm, 02/06/25 12:56:00 EDT, Height, 84, kg, 01/10/25 7:47:00 EDT, Dry Weight Start Date: 02/06/25 Status: Ordered Medication Dispense Status: Completed Quantity: 238.0 Unit: g Total Allowed Fills: 1 Fills Dispensed: 0 Indications: Personal history of colon polyps, unspecified; omeprazole 20 mg oral delayed release tablet 1 tablet = 20 mg, By Mouth, Daily before breakfast, # 30 tablet, 5 Refills, Maintenance, 07/18/24 11:51:00 AM EDT, CR Tablet, [email or web address] #[id number], Partial fill upon patient request if the prescription is for a schedule II opioid drug., 170.6, cm, 07/18/24 11:16:00 EDT, Height, 84.4, kg, 06/04/24 15:10:00 EST, Dry Weight Start Date: 07/18/24 Status: Ordered Medication Dispense Status: Completed Quantity: 30.0 Unit: tablet Total Allowed Fills: 6 Fills Dispensed: 0 traZODone 100 mg oral tablet 1-2 tablet, By Mouth, Daily at bedtime, PRN, # 30 tablet, Refills 1, Tot. Refills 1, Maintenance, Sleep, 03/11/25 10:54:00 AM EST, Route to Pharmacy Electronically, [email or web address] #[id number], 178, cm, 03/05/25 11:52:00 EDT, Height, 84, kg, 01/10/25 7:47:00 EDT, Dry Weight Start Date: 03/11/25 Status: Ordered Medication Dispense Status: Completed Quantity: 30.0 Unit: tablet Total Allowed Fills: 2 Fills Dispensed: 0 venlafaxine 150 mg oral capsule, extended release 2 capsule, By Mouth, Daily, # 180 capsule, 1 Refills, Maintenance, 02/27/25 10:32:00 AM EDT, [email or web address] #[id number], 178, cm, 02/06/25 12:56:00 EDT, Height, 84, kg, 01/10/25 7:47:00 EDT, Dry Weight Start Date: 02/27/25 Status: Ordered Medication Dispense Status: Completed Quantity: 180.0 Unit: capsule Total Allowed Fills: 2 Fills Dispensed: 0 Vitamin B1 100 mg oral tablet 100 mg, 1, tablet, By Mouth, Daily, for 90 days, TAKE 1 TABLET BY MOUTH DAILY, # 90 tablet, Refills1, Tot. Refills 1, Acute 07/27/25 12:11:00 PM EDT, 01/28/25 12:11:00 PM EDT, Route to Pharmacy Electronically, [email or web address] #[id number], Partial fill upon patient request if the prescription is for a schedule II opioid drug., 178, cm, 01/10/25 11:31:00 EDT, Height, 84, kg, 01/10/25 7:47:00 EDT, Dry Weight Start Date: 01/28/25 Stop Date: 07/27/25 Status: Ordered Medication Dispense Status: Completed Quantity: 90.0 Unit: tablet Total Allowed Fills: 2 Fills Dispensed: 0 Vitamin B12 1000 mcg oral tablet 1 tablet = 1,000 mcg, By Mouth, Daily, # 90 tablet, 1 Refills, Maintenance, 12/27/24 2:13:00 PM EDT,Tablet, [facility] #[id number], Partial fill upon patient request if the prescription is for aschedule II opioid drug., 178, cm, 11/22/24 14:44:00 EDT, Height, 90.9, kg, 08/29/24 10:42:00 EDT, Dry Weight Start Date: 12/27/24 Status: Ordered Medication Dispense Status: Completed Quantity: 90.0 Unit: tablet Total Allowed Fills: 2 Fills Dispensed: 0 Problem List Condition Confirmation Course Effective Dates Status H ealth Status Informant Neuropathy, alcoholic Confirmed Active Alcoholism Confirmed Active Articular gout Confirmed Active Coronary artery disease Confirmed 2000 Active Esophageal thickening Confirmed Active Dyslipidemia Confirmed 12/29/08 Active [place]ERETTE (generalized anxiety disorder) Confirmed Active History of syncope Confirmed Active Prostate cancer Confirmed Active Mood disorder Confirmed 2001 Active BPH associated with nocturia Confirmed Active Osteoarthritis of left knee Confirmed Active Major depression, recurrent Confirmed Active Tobacco abuse Confirmed Active Low vitamin B12 level Confirmed Active Social History Social History Type Response Smoking Status Current every day sm oker; Type: Cigarettes; Other: start age 22 1/2-1ppd; Tobacco use times per day: 1/2 PPD; entered on: 09/27/17 Sexual Orientation Self described orien tation: ; Straight or heterosexual Sex Sex Representation Male (finding) Patient Care team information Care Team Personnel Name: Virgil Burdick RN Position: S RN Member Role: Primary Care Nurse Name: Tonia Gauthier RN Position: S RN Member Role: Primary Care Nurse Name: Peggy Kovacs RN Position: S RN Member Role: Primary Care Nurse Name: Kortney Haq Position: S RN Member Role: Primary Care Nurse Name: Blake De Santiago RN Position: S RN Member Role: Primary Care Nurse Name: Teresa Fontana RN Position: S RN Member Role: Primary Care Nurse Name: Shavon Caceres RN Position: S RN Member Role: Primary Care Nurse Name: Tess Mcduffie MD Position: [facility] Physician - Primary Care Member Role: PCP Address: [address] [place] [address] [address] [place] [address]- Telecom: Name: Deb Banks RN Position: S RN Member Role: Primary Care Nurse Name: Hai Wilkinson RN Position: [facility] RN Member Role: Primary Care Nurse Name: Jerilyn Lynn RN Position: S RN Member Role: Primary Care Nurse Name: Chandana Moran RN Position: [facility] RN Member Role: Primary Care Nurse Care Team Related Persons Name: ELANA NUNO Insurance Providers Guarantor name: PRAKASH NUNO Health Plan Information #: 1 Payer: [facility] Payer Identifier: JOSEF Member Number: [id number] Group Number: [id number] Subscriber Identifier: [id number] Relationship to Subscriber: self Coverage Type: NA Coverage Verification Date: NA Telecom: NA Address:
--- OUTSIDE RECORDS SUMMARY | 2025-03-23 23:59 | XMS_ITS | Continuity of Care Document ---
Author Organization [facility] Adult Address [address] [place] [address]- Care Team Providers Care Electroplater Apprentice Name Role Phone Reta MERCEDES, Tess Primary Care Physician [id number] Date(s): 02/21/25 - 03/23/[address] [address] Encounter Type: Triage Allergies, Adverse Reactions, Alerts No Known Allergies Immunizations Given and Recorded Vaccine Date Status Refusal Reason RSV vaccine preF3, recombinant 10/30/24 Recorded SARS-CoV-2(COVID-19)mRNA-LNP vac([id number]) 01/30/24 Recorded pneumococcal 20-valent conjugate vaccine 07/04/22 Recorded tetanus/diphtheria/pertussis, acel(Tdap) 07/04/22 Recorded tetanus/diphtheria/pertussis, acel(Tdap) 10/03/11 Given zoster vaccine, inactivated 12/07/20 Recorded influenza virus vaccine, inactivated 1 06/07/18 Gi elliott influenza virus vaccine, inactivated 03/07/13 Give n influenza virus vaccine, inactivated 02/14/12 Give n influenza virus vaccine, inactivated 07/26/11 Give n pneumococcal 23-valent vaccine 07/26/11 Given 1Result Comment: [06/07/2018] [facility] [id number] Medications allopurinol 300 mg oral tablet 300 [...] 3 Refills, Maintenance, 03/26/21 2:29:00PM EST, Tablet, [facility] #[id number], 172, cm, 03/26/21 14:22:00 EST, Height, 94, kg, 02/22/21 11:27:00 EDT, Dry Weight Start Date: 03/26/21 Status: Ordered Medication Dispense Status: Completed Quantity: 30.0 Unit: tablet Total Allowed Fills: 4 Fills Dispensed: 0 finasteride 5 mg oral tablet 1 tablet = 5 mg, By Mouth, Daily, # 30 tablet, 0 Refills, Maintenance, 01/10/25 12:08:00 PM EDT, Tablet, [facility] #[id number], Partial fill upon patient request if the [...] Refills, Maintenance, 01/28/25 12:02:00 PM EDT, Tablet, [facility] #[id number], Partial fill upon patient request if the [...] 11 Refills, Maintenance, 08/27/24 5:58:00 PM EDT, [facility] #[id number], Partial fill upon patient request if the [...] 0 Refills, Maintenance, 02/06/25 1:26:00 PM EDT, [facility] #[id number], Partial fill upon patient request if the [...] Maintenance, 07/18/24 11:51:00 AM EDT, CR Tablet, [facility] #[id number], Partial fill upon patient request if the [...] 10:54:00 AM EST, Route to Pharmacy Electronically, [facility] #[id number], 178, cm, 03/05/25 11:52:00 EDT, Height, 84, kg, 01/10/25 7:47:00 EDT, Dry Weight Start Date: 03/11/25 Status: Ordered Medication Dispense Status: Completed Quantity: 30.0 Unit: tablet Total Allowed Fills: 2 Fills Dispensed: 0 venlafaxine 150 mg oral capsule, extended release 2 capsule, By Mouth, Daily, # 180 capsule, 1 Refills, Maintenance, 02/27/25 10:32:00 AM EDT, [facility] #[id number], 178, cm, 02/06/25 12:56:00 EDT, Height, 84, [...] 12:11:00 PM EDT, Route to Pharmacy Electronically, [facility] #[id number], Partial fill upon patient request if the [...] 1 Refills, Maintenance, 12/27/24 2:13:00 PM EDT,Tablet, [facility] #[id number], Partial fill upon patient request if the [...] Team Personnel Name: Virgil Burdick RN Position: [facility] RN Member Role: Primary Care Nurse Name: [...] Care Nurse Name: Tess Mcduffie MD Position: [facility] Physician - Primary Care Member Role: PCP Address: [address] [place] [address]- Telecom: Name: Deb Banks RN Position: S RN Member Role: Primary Care Nurse Name: Hai Wilkinson RN Position: [facility] RN Member Role: Primary Care Nurse Name: Jerilyn Lynn RN Position: [facility] RN Member Role: Primary Care Nurse Name: Chandana Moran RN Position: [facility] RN Member Role: Primary Care Nurse Care Team Related Persons Name: ELANA NUNO Insurance Providers Guarantor name: [facility] Health Plan Information #: 1 Payer: [facility] Payer Identifier: JOSEF Member Number: [id number] Group Number: [id number] Subscriber Identifier: JOSEF Relationship to Subscriber: self Coverage Type: NA Coverage Verification Date: NA Telecom: NA Address:
--- NOTE | 2025-03-26 11:49 | MHC.OFFVIS ---
Vital Signs 03/26/25 11:54 Height 5 ft 8 in Weight 199 lb BMI 30.3 Intake Visit Reasons: OV-Instability of R thumb MCP Intake Note: Shay 64 yr old right hand dominant male who is retired, presents today for his follow up visit for his right thumb S/P felling while having an episode of dizziness October 2024, catching himself with his right hand. 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 Today patient states he is wearing his brace, states its a little tight but he is wearing it. His pain is currently a 4/10 on pain scale. 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 Regarding the right hand: Sensation was grossly intact to all digits. Cap refill brisk He has got significant ulnar deviation of the right thumb at the MCP joint. This is passively reducible to neutral. The ulnar collateral ligament is intact The radial collateral ligament is not intact, there is no end point and at rest the MCP joint is pulled into radial deviation. The joint itself is not particularly tender to palpation once some holding it in extension. Again the patient reports that this only happened about 3 months ago, and that prior to 3 months ago it was in normal alignment. Good active flexion and extension of the thumb at the MCP and IP joints. No overlying skin changes With the fingers he can make a fist and extend all of his fingers. No locking or catching Radiographs: Three views of the right hand taken today were reviewed by me today in clinic. They show some significant ulnar deviation of the right thumb MCP joint indicative of incompetence of the right thumb MCP joint radial collateral ligament. He has also got some arthritic changes in the joint. Assessment & Plan Assessment & Plan (1) Rupture of radial collateral ligament of right thumb: Code(s): S63.641A - Sprain of metacarpophalangeal joint of right thumb, initial encounter Category: Medical Plan Assessment and plan: 1. Right thumb radial collateral ligament tear with instability of the MCP joint Date of injury October of 2024 I educated him about this injury We discussed operative and non operative treatment options including arthrodesis versus reduction, pinning and ligament repair. He wishes to proceed with right thumb MCP joint reduction, pinning and radial collateral ligament repair The risks and benefits of operative treatment were discussed with the patient and the patient wishes to proceed with surgery. These risks include, but are not limited to risk of damage to blood vessels, nerves, tendons, infection, recurrence, incomplete relief of preoperative symptoms, persistent pain, possible need for further surgery and the risks associated with regional blocks and anesthesia. The plan is to take the patient to the operating room sometime in May 2025 for the following procedures: 1. Right thumb MCP joint reduction and pinning 2. Right thumb MCP joint radial collateral ligament repair All of the preoperative paperwork including the consent was filled out today. All the patient's questions were answered. The patient understands that they will be contacted by our ground worker soon to schedule this procedure Please note the patient has had several heart attacks in the past. He is going to be seen by his grass farm laborer for an upcoming colonoscopy, and I believe he recently obtained cardiac clearance for this.. He will need clearance from Cardiology per anesthesia wishes Orders: Orders XR hand RT min 3V Today M79.641 - Pain in right hand Coding Level of Care Code Est Pt Level 4 (53131) Diagnoses Rupture of radial collateral ligament of right thumb S63.641A
[2025-03-26 11:54] VITALS: BMI 30.3
--- OUTSIDE RECORDS SUMMARY | 2025-03-26 21:24 | XMS_ITS ---
Author Name [facility] Organization Unknown Results Test Name/Text Value Interpretation Date Range Source BICARBONATE 28.0 mmol/L Normal 02/29/2024 23 - 32 [facility] CREATININE 0.8 mg/dL Normal 02/29/2024 0.6 - 1.2 [facility] POTASSIUM 4.1 mmol/L Normal 02/29/2024 3.6 - 5.1 [facility] CALCIUM, TOTAL 8.5 mg/dL Normal 02/29/2024 8.4 - 10.2 [facility] CHLORIDE 105.0 mmol/L Normal 02/29/2024 100 - 111 [facility] SODIUM 141.0 mmol/L Normal 02/29/2024 137 - 144 [facility] UREA NITROGEN 6.0 mg/dL Below low normal 02/29/2024 8 - 24 [facility] ANION GAP 8.0 mmol/L Normal 02/29/2024 3 - 11 [facility] GLUCOSE 76.0 mg/dL Normal 02/29/2024 70 - 200 [facility] GLOMERULAR FILTRATION RATE ML/MIN/1.73 SQ M.PREDICTED 100.0 mL/min/1.73m*2 Normal 02/29/2024 60 - [facility] RED CELL COUNT 4.51 10*6/ L Normal 02/29/2024 4.4 - 5.9 [facility] PLATELET COUNT 218.0 10*3/uL Normal 02/29/2024 150 - 440 [facility] MCHC 30.9 g/dL Below low normal 02/29/2024 32 - 36 [facility] RBC DISTRIBUTION WIDTH 14.8 % Normal 02/29/2024 11.6 - 14.8 [facility] HEMATOCRIT 41.1 % Normal 02/29/2024 40 - 52 [facility] HEMOGLOBIN 12.7 g/dL Below low normal 02/29/2024 13 - 18 [facility] MCV 91.1 fL Normal 02/29/2024 80 - 100 [facility] MCH 28.2 pg Normal 02/29/2024 26 - 34 [facility] AUTO NRBC % 0.0 % Normal 02/29/2024 0 - 0 [facility] WHITE CELL COUNT 6.2 10*3/uL Normal 02/29/2024 3.8 - 10.6 [facility] TROPONIN I, HIGH SENSITIVITY 158.0 ng/L Critically high 02/28/2024 - [facility] NATRIURETIC PEPTIDE B (BNP) 495.0 pg/mL Above high normal 02/28/2024 0 - 100 [facility] LACTIC ACID 1.0 mmol/L Normal 02/28/2024 0.5 - 1.9 [facility] INFLUENZA B PCR ([employer]) Not Detected Normal 02/28/2024 [facility] SARS-COV-2 PCR ([employer]) Negative Normal 02/28/2024 [facility] RSV PCR ([employer]) Not Detected Normal 02/28/2024 [facility] INFLUENZA A PCR ([employer]) Not Detected Normal 02/28/2024 [facility] TROPONIN I, HIGH SENSITIVITY 231.0 ng/L Critically high 02/28/2024 - [facility] LACTIC ACID 4.8 mmol/L Above high normal 02/28/2024 0.5 - 1. 9 [facility] D-DIMER, QUANTITATIVE 380.0 ng/mL D-DU Above high normal 0 - 243 [facility] CREATININE 0.9 mg/dL Normal 02/28/2024 0.6 - 1.2 [facility] UREA NITROGEN 7.0 mg/dL Below low normal 02/28/2024 8 - 24 [facility] CHLORIDE 100.0 mmol/L Normal 02/28/2024 100 - 111 [facility] SODIUM 142.0 mmol/L Normal 02/28/2024 137 - 144 [facility] GLOMERULAR FILTRATION RATE ML/MIN/1.73 SQ M.PREDICTED 97.0 mL/min/1.73m*2 Normal 02/28/2024 60 - [facility] BICARBONATE 31.0 mmol/L Normal 02/28/2024 23 - 32 [facility] GLUCOSE 129.0 mg/dL Normal 02/28/2024 70 - 200 [facility] POTASSIUM 4.0 mmol/L Normal 02/28/2024 3.6 - 5.1 [facility] CALCIUM, TOTAL 9.7 mg/dL Normal 02/28/2024 8.4 - 10.2 [facility] ANION GAP 11.0 mmol/L Normal 02/28/2024 3 - 11 [facility] ALKALINE PHOSPHATASE 74.0 U/L Normal 02/28/2024 39 - 113 [facility] ALBUMIN, AUTOMATED 3.7 g/dL Below low normal 02/28/2024 3.8 - 5.3 [facility] BILIRUBIN, TOTAL 0.4 mg/dL Normal 02/28/2024 0.1 - 1.2 [facility] AST (SGOT) 14.0 U/L Below low normal 02/28/2024 17 - 35 [facility] PROTEIN TOTAL 6.6 g/dL Normal 02/28/2024 6.2 - 8.1 [facility] BILIRUBIN, DIRECT 0.2 mg/dL Normal 02/28/2024 0 - 0.5 [facility] ALT (SGPT) 11.0 U/L Normal 02/28/2024 8 - 39 [facility] MAGNESIUM 2.0 mg/dL Normal 02/28/2024 1.8 - 3 [facility] LIPASE 16.0 U/L Normal 02/28/2024 8 - 51 [facility] BASOPHILS % 0.4 % Normal 02/28/2024 0 - [address] [facility] 1.1 10*3/uL Normal 02/28/2024 0.7 - 4.5 [facility] MCH 29.5 pg Normal 02/28/2024 26 - 34 [facility] LYMPHOCYTE % 12.3 % Below low normal 02/28/2024 20 - 50 [facility] RBC DISTRIBUTION WIDTH 14.8 % Normal 02/28/2024 11.6 - 14.8 [facility] MCV 95.1 fL Normal 02/28/2024 80 - 100 [facility] PLATELET COUNT 240.0 10*3/uL Normal 02/28/2024 150 - 440 [facility] NEUTROPHIL % 80.0 % Above high normal 02/28/2024 40 - 70 [facility] WHITE CELL COUNT 8.9 10*3/uL Normal 02/28/2024 3.8 - 10.6 [facility] HEMOGLOBIN 14.5 g/dL Normal 02/28/2024 13 - [address] [facility] [address] 7.1 10*3/uL Above high normal 02/28/2024 1.4 - 6.3 [facility] AUTO NRBC % 0.0 % Normal 02/28/2024 0 - 0 [facility] MCHC 31.0 g/dL Below low normal 02/28/2024 32 - [address] [facility] [address] 0.1 10*3/uL Normal 02/28/2024 0 - 0.[address] [facility] [address] 0.5 10*3/uL Normal 02/28/2024 0.2 - 0.8 [facility] IMMATURE GRANULOCYTE % 0.7 % Above high normal 02/28/2024 0 - 0.6 [facility] RED CELL COUNT 4.91 10*6/ L Normal 02/28/2024 4.4 - 5.[address] [facility] [address] 0.0 10*3/uL Normal 02/28/2024 0 - 0. 2 [facility] EOSINOPHIL % 1.3 % Normal 02/28/2024 0 - 6 [facility] HEMATOCRIT 46.7 % Normal 02/28/2024 40 - 52 [facility] MONOCYTE % 5.3 % Normal 02/28/2024 4 - 12 [facility] Problems Problem Status Onset Date Problem Type Date of Resoluti on Source Prostate cancer active 2024-02-26 ProblemAct [facility] Encounters Encounter Type Encounter Reason Primary Diagnosis Location Date Inpatient Pneumonia, unspecifi ed organism Pneumonia, unspecified organism [facility] 02/28/2024 Care Team Organization Name Specialty Phone Email Start Date End Da te [facility] PASQUALE IVEY Primary Care 02/28/2024 [facility] 02/28/2024 [facility] SHAMIKA ARGUELLO Primary Care 01/10/2024
--- OUTSIDE RECORDS SUMMARY | 2025-03-26 21:24 | XMS_ITS | Clinical Summary ---
Author Organization [facility] Address [address] [place] [address] Care Team Providers Care Telegraph Dispatcher Name Role Phone Tess Mcduffie MD Unavailable [phone] Tess Mcduffie MD Primary Care Provider Allergies [...] been previously worked up for this in [place] per [facility] everywhere and workup came back unremarkable. Troponinemia [...] been previously worked up for this in [place] per care everywhere and workup came back [...] states he quit alcohol 40 days ago [facility] [employer] Answer Date Recorded In the past 12 months has [facility] [employer], [employer], or water [employer] threatened to shut off services in your [...] any time in the past 12 m [facility], were you homeless or living in a penitentiary (including now)? No 02/28/2024 Sex and Gender [...] HIV Screening 1960 Hepatitis C Screening 1979 COVID-19 Vaccine ( season) 2025 01/30/2024, 01/20/2022, 04/22/2021, Additional history exists Influenza Vaccine (#1) 2025 9, 03/07/2013, 02/14/2012, [...] Pneumococcal Vaccine, 50+ Years Completed 07/04/2022, 07/26/2011 HPV Vaccines Aged Out No longer eligi ble based on patient's age to complete this topic Insurance [employer] Advance Directives For more information, please contact: [phone] * Full Code (Latest Code Status on File) Date Activated Date Inactivated Comments 02/28/2024 2:50 PM 02/29/2024 3:31 PM * Full Code Date Activated Date Inactivated Comments 02/28/2024 1:50 PM 02/28/2024 2:50 PM Care Teams Telegraph Dispatcher Relationship Specialty Start Date End Date Tess Mcduffie MD [address] [place] [id number] PCP - Insurance Payer PCP 02/28/24 Tess Mcduffie MD [address] [place] [id number] PCP - General Primary Care 02/28/24
== END 2025-03-26 13:19 | disposition home or self-care (01) ==
LOC: HO.HOS 10:51
PROVIDERS: PCP Internal Medicine; Visit Provider Orthopaedic Surgery
DX: S63.641A Sprain of metacarpophalangeal joint of right thumb, initial encounter (principal)
CPT/HCPCS: 99214

== ENCOUNTER 2025-03-26 10:53 | Outpatient (REF) | payer OTHER, SELFPAY ==
--- NOTE | ~2025-03-26 | XR_ITS ---
EXAMINATION: XR HAND 3 OR MORE VIEWS RIGHT HISTORY: M79.641 - Pain in right hand COMPARISON: Comparison is made with the prior examination dated 10/29/2024. FINDINGS: Three views of the right hand are submitted. Osseous mineralization is normal. There is no fracture or dislocation. Again seen is subluxation of the proximal phalanx of the thumb with associated moderate degenerative changes. A linear metallic foreign body is again seen in the soft tissues of the thenar eminence. 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 XR/XR hand RT min 3V IMPRESSION: Moderate degenerative changes of the 1st MCP joint with associated subluxation of the proximal phalanx of the thumb without change. Electronically signed by: Fabián Frank MD 03/26/2025 11:26 AM DELROY
--- OUTSIDE RECORDS SUMMARY | 2025-03-27 16:26 | XMS_ITS | Clinical Summary ---
Author Organization [facility] Address [address] [place] [address] Care Team Providers Care Turret Lathe Operator Name Role Phone Tess Mcduffie MD Unavailable [phone] Tess Mcduffie MD Primary Care Provider Allergies [...] been previously worked up for this in [place] per [facility] everywhere and workup came back unremarkable. [...] been previously worked up for this in [place] per care everywhere and workup came back [...] states he quit alcohol 40 days ago [facility] [employer] Answer Date Recorded In the past 12 months has [facility] [employer], [employer], or water [employer] threatened to shut off services in your [...] any time in the past 12 m [facility], were you homeless or living in a [facility] (including now)? No 02/28/2024 Sex and Gender [...] Advance Directives For more information, please contact: [phone] * Full Code (Latest Code Status on File) Date Activated Date Inactivated Comments 02/28/2024 2:50 PM 02/29/2024 3:31 PM * Full Code Date Activated Date Inactivated Comments 02/28/2024 1:50 PM 02/28/2024 2:50 PM Care Teams Turret Lathe Operator Relationship Specialty Start Date End Date Tess Mcduffie MD [address] [place] [id number] PCP - Insurance Payer PCP 02/28/24 Tess Mcduffie MD [address] [place] [id number] PCP - General Primary Care 02/28/24
== END 2025-03-26 10:54 | disposition home or self-care (01) ==
LOC: HO.HOSX 10:53
PROVIDERS: Visit Provider Orthopaedic Surgery
DX: S63.641D Sprain of metacarpophalangeal joint of right thumb, subsequent encounter (principal); X58.XXXD Exposure to other specified factors, subsequent encounter
CPT/HCPCS: 73130

== ENCOUNTER → 2025-03-26 10:58 | Outpatient (BNV) | payer OTHER, SELFPAY | PROVIDERS: Visit Provider Radiology Diagnostic Radiology | DX: M79.641 Pain in right hand (principal) | CPT/HCPCS: 73130 ==